=== PATIENT | female | born 1965 | race Caucasian/White ===

== ENCOUNTER → 2024-02-01 | Outpatient (CLI) | payer OTHER ==
--- NOTE | 2024-02-19 09:06 | MR ---
Patient: Gus Figueroa Ordering Physician: Unknown, Unknown ID: [id number] Phone, Pager: Phone : N/A Pager: N/A : 1965 Age/Gender: 58Y, F Primary Location: N/A Procedure: MR lumbar wo con Study Date: 02/01/2024 7:17:02 AM EXAMINATION TYPE: MR lumbar spine wo con DATE OF EXAM: 02/02/2024 8:21 AM CLINICAL INDICATION: Low back pain that radiates to both legs COMPARISON: None TECHNIQUE: Multi planar, multi sequence imaging was performed utilizing: T1-weighted, T2-weighted, a nd turbo inversion recovery imaging of the lumbar spine. IV Contrast: (None if empty) FINDINGS: Alignment: The lumbar vertebral bodies have preserved heights with grade 1 anterolisthesis of L4 on L 5. Cord: The conus medullaris and the distal spinal cord appear unremarkable with regards to their signa l intensity and morphology. Bones/Discs: Mild degeneration changes throughout the spine with osteophyte formation and facet joint arthropathy. Multilevel disc desiccation is present. Reactive adjoining endplate edema at L4-L5 on t he right. T12-L1: No evidence of significant spinal canal stenosis or neural foraminal stenosis. L1-L2: No evidence of significant spinal canal stenosis or neural foraminal stenosis. L2-L3: Disc bulge and facet joint arthropathy without significant spinal canal stenosis and moderate to severe left and moderate neural foraminal stenosis. L3-L4: Disc bulge and facet joint arthropathy result in mild spinal canal and severe bilateral neural foraminal stenosis. L4-L5: Disc uncovering from grade 1 anterolisthesis and facet joint arthropathy with mild spinal tana l stenosis and severe bilateral neural foraminal stenosis. L5-S1: The disc has a rounded posterior morphology without significant spinal canal stenosis. Facet j oint arthropathy with severe bilateral neural foraminal stenosis. No significant spinal canal or neural foraminal stenosis in the remainder of the visualized levels. Other findings: None. IMPRESSION: 1. No definitive evidence of disc herniation or significant spinal canal stenosis. 2. Grade 1 anterolisthesis of L4 on L5 resulting in severe bilateral neural foraminal stenosis. 3. Multilevel disc degeneration with associated osteoarthritic changes with severe bilateral L5-S1 a nd L3-L4 neural foraminal stenosis.
== END | disposition home or self-care (01) ==
LOC: RADMRIMAIN 08:00
PROVIDERS: ATTEND Student in an Organized Health Care Education/Training Program
DX: M54.51 Vertebrogenic low back pain (principal); M48.061 Spinal stenosis, lumbar region without neurogenic claudication; M51.37 Other intervertebral disc degeneration, lumbosacral region; M19.90 Unspecified osteoarthritis, unspecified site; M51.17 Intervertebral disc disorders with radiculopathy, lumbosacral region
CPT/HCPCS: 72148

== ENCOUNTER → 2024-02-18 | Outpatient (CLI) | payer OTHER ==
--- NOTE | 2024-02-18 11:57 | CT ---
EXAMINATION TYPE: CT lumbar spine wo con CT DLP: 906 mGycm, Automated exposure control for dose reduction was used. DATE OF EXAM: 02/18/2024 11:29 AM COMPARISON: MR lumbar spine 02/01/2024, lumbar spine radiograph 01/29/2024. CLINICAL INDICATION:Female, 58 years old with history of M54.5 lumbar pain; PHH, LOW BACK PAIN. HX OF LAMINECTOMY. POSSIBLE FX TECHNIQUE: Multiple axial images were obtained from the midportion of T11 through the sacroiliac maritza nts. Soft tissue and bone windows in coronal and sagittal planes were obtained and reviewed. Contrast used: none. Oral contrast used: none. FINDINGS: Alignment: There are 5 lumbar type vertebral bodies. Grade 1 anterolisthesis of L4 on L5 with right p ars defect. Bone: No evidence of fracture is identified. Postsurgical changes with laminectomy at L4 and L5. Mul tilevel anterior osteophytosis. Bilateral SI joint degenerative changes with sclerosis and vacuum dis c disease. Discs: Multilevel degenerative disc disease with endplate sclerosis, disc space narrowing, and vacuum disc disease. T12-L1: Left paracentral disc protrusion with mild effacement of the anterior thecal sac. Mild bilate ral neural foraminal stenosis. L1-L2: Broad-based disc bulge with mild effacement of the anterior thecal sac. Mild bilateral neurofo raminal stenosis. L2-L3: Broad-based disc bulge without significant central canal stenosis. Right neural foramen is pat ent. Mild left neural foraminal stenosis. L3-L4: Postlaminectomy changes. Broad-based disc bulge with mild effacement of anterior thecal sac. N o significant central canal stenosis. Bilateral facet arthropathy. Moderate to severe left and modera te right neural foraminal stenosis. L4-L5: Grade 1 anterolisthesis with uncovering the disc. Postlaminectomy changes with broad-based dis c bulge. No significant central canal stenosis. Bilateral facet arthropathy. Mild to moderate bilater al neural foraminal stenosis secondary to facet arthropathy and disc bulge. L5-S1: Broad-based disc bulge with mild effacement of the anterior thecal sac. Bilateral facet arthro david and disc bulge contribute to moderate bilateral neural foraminal stenosis. Other: Moderate atherosclerotic calcification of the aorta and its branches. Postcholecystectomy burns ges. IMPRESSION: 1. No evidence for spinal fracture. 2. Moderate multilevel degenerative disc disease and facet arthropathy as described above. 3. Postsurgical changes from laminectomy L4-L5 with grade 1 anterolisthesis L4 on L5.
== END | disposition home or self-care (01) ==
LOC: RADCTMAIN 11:07
PROVIDERS: ATTEND Orthopaedic Surgery
DX: M47.26 Other spondylosis with radiculopathy, lumbar region (principal); M51.36 Other intervertebral disc degeneration, lumbar region; M43.16 Spondylolisthesis, lumbar region
CPT/HCPCS: 72131

== ENCOUNTER → 2024-05-27 | Outpatient (CLI) | payer OTHER | END | disposition home or self-care (01) | LOC: LABPAT 11:57 | PROVIDERS: ATTEND Orthopaedic Surgery | DX: Z01.818 Encounter for other preprocedural examination (principal); Z22.322 Carrier or suspected carrier of Methicillin resistant Staphylococcus aureus; M48.061 Spinal stenosis, lumbar region without neurogenic claudication; M99.43 Connective tissue stenosis of neural canal of lumbar region | CPT/HCPCS: 86850; 86900; 86901; 87070 ==

== ENCOUNTER 2024-06-04 09:58 | Inpatient (IN) | payer OTHER ==
[2024-05-28 15:10] VITALS: BMI 31.1
--- NOTE | 2024-06-04 06:40 | P.HPOR ---
History of Present Illness H&P Date: 05/27/24 .D:Date: 05/27/24 : 04:15pm .T:Title: *[facility] [address] [place], [place] [address], [place] [address]| PROVIDER: DEANNA NEIL DO CLINICAL SUMMARY: *Ms. Figueroa is a 59-year-old female presenting with severe lumbar pain (VAS 6/10) and bilateral lower extremity radiculopathy. She has a history of L2- S1 laminectomy in 2019 and presents for pre-operative evaluation for revision L3 to pelvis fusion surgery. Imaging reveals Grade I unstable spondylolisthesis at L3-4 and L4-5 with severe L3-S1 spondylosis and foraminal stenosis. Physical exam demonstrates bilateral lower extremity weakness (4/5), positive straight leg raise, and dermatomal deficits L3-S1. Conservative treatments including physical therapy, medications, and injections have failed to provide lasting relief. Surgical Plan and Rationale: The recommended procedure is a revision L3 to pelvis posterior lateral and interbody fusion with revision decompression and stabilization. This extensive procedure is warranted due to multiple factors: failed conservative management, progressive neurological deficits including motor weakness and radiculopathy, and significant imaging findings showing multi-level instability. The surgery aims to address both the mechanical instability and neural compression to prevent further neurological deterioration and provide pain relief. DEMOGRAPHICS: Age: 59 year Height: 5'3" Weight: 164 lbs BP:/ BMI: 29.05 kg/m2 Occupation: *Office CC: *lumbar pain VAS: * 6 HISTORY: Ms. Figueroa presents to the office today, 05/27/24, for a pre-operative appointment preceding her Revision L3 to pelvis posterior lateral and interbody fusion with decompression and stabilization. She has a history of L2-S1 laminectomy with Dr. Mendieta in 2019. She notes constant, achy, posterior low back pain that radiates bilateral lower extremities. She notes increased pain with bending and twisting. She notes that heat helps alleviate some of her pain. She is experiencing sleep disturbances from her ongoing pain and symptoms. She is currently taking tramadol and motrin for relief of her symptoms. H8 Patient denies any f/c/sob/cp, perineal numbness or tingling, bowel, or bladder incontinence/retention. Patient is ambulatory independently. P1 The patients past social, medical, family, surgical history, as well as review of systems, have been reviewed. Please refer to the History and Physical form that has been scanned into our electronic medical record system. R0 16 points review of systems completed and as stated in HPI, all other systems reviewed are negative. PAST TREATMENTS: PAST IMAGING: YES -MRI, XRAY, CT SANS TRAUMA RELATED: NO - WORK RELATED: NO - PT IN LAST 6 MONTHS: YES - PHYSICIAN DIRECTED HOME EXERCISE PROGRAM: YES -SEVERAL ROUNDS, NO SUCCESS ACTIVITY MODIFICAITON: YES -LIMITED BLTPP <15 LBS MEDICATIONS: YES -MOTRIN, TYLENOL, ALEVE, ROBAXIN, MEDROL ALTERNATIVE INTERVENTIONS (CHIROPRACTIC, ACCUPUNCTURE, MASSAGE, RICE): YES -CHIROPRACTICS, WILL NOT GO BACK BRACING: NO - INJECTIONS (MK, TF, RFA): YES -NO SIGNIFICANT LASTING RELIEF MEDICAL HISTORY: Past Medical History: REVIEWED STATED IN CHART Past Surgical History: REVIEWED STATED IN CHART Social History: REVIEWED STATED IN CHART SMOKING: Never smoker ETOH: None SUBSTANCES: None Family History: REVIEWED STATED IN CHART P1 Current Medications: Rx: Janumet Ref: 0 Rx: ibuprofen 200 mg tablet Ref: 0 Instructions: take 1 tablet (200 mg) by oral route every 6 hours as needed with food Rx: traMADol 50 mg tablet Ref: 0 Instructions: Twice daily as needed for pain P1 PHYSICAL EXAM: PC2 PC1 General: AOX3, NAD, Well hydrate, well nourished PN1 HEENT: No lumps or masses Extremities: No color changes, no pooling INTEGUMENT: Appearance: Normal color and turgor Surgical Incisions: Well healed Hairy Patches: ABSENT Dorsal Skin Dimples: Normal [employer] spots: ABSENT PALPATION: TTP Midline: YES Paracervical: NO Parathoracic: NO Paralumbar: YES SIJ TESTING: NT POSTURAL BALANCE: Coronal: BALANCED Sagittal: BALANCED Shoulder height: LEVEL Pelvic Girdle: LEVEL ROM AND APPEARANCE: Neck: UNRESTRICTED Lumbar: RESTRICTED Shoulders: Symmetrical Hips: Symmetrical Knees: Symmetrical Hands: Symmetrical Feet: Symmetrical VASCULAR STATUS: PALPABLE PULSES B/L UE AND LE 2/4 RAD/ULNAR/DP/PT Edema: NONE NEUROLOGICAL EXAMINATION: Mental Status: Awake, alert, fully oriented with normal attention, concentration, and memory. Fluent appropriate speech. CRANIAL NERVES: I: Olfactory not assessed. II: Visual acuity normal, no visual field deficit noted with confrontation. III, IV: Normal pupillary reflexes & intact extraocular movements without nystagmus. V, : Intact symmetrical facial sensation. VII: Intact symmetrical facial motor movement: Hearing intact. IX, X: Intact gag, swallow, & normal voice. XI: Sternocleidomastoid, trapezius function intact. XII: Tongue midline with normal movements. TENSIONING: * L'HERMITTE'S SIG:NEG SPURLUNG'S SIGN:NEG CUBITAL TUNNEL COMPRESSION:NEG TINELS AT WRIST:NEG STRAIGH LEG RAISE:POS CONTRALATERAL STRAIGHT LEG RAISE: NEG MOTOR EXAM (0-5/5, NT) Muscle appearance: Symmetrical, without signs of atrophy or dystrophy UPPER EXTREMITY RIGHT LEFT Shoulder Abduction 5 5 Biceps 5 5 Triceps 5 5 Wrist Extension 5 5 Hand Intrinsics 5 5 Product Development Manager 5 5 LOWER EXTREMITY RIGHT LEFT Hip Flexion 4 4 Knee Extension 4 4 Knee Flexion 4 4 Dorsiflexion 4 4 Plantarflexion 4 4 EHL 4 4 FHL 4 4 REFLEXES (0-4/2, NT): RIGHT LEFT Bicep 2 2 Brachioradialis 2 2 Triceps 2 2 Patellar 1 2 Achilles 1 2 PATHOLOGICAL REFLEXES: RIGHT LEFT DOWLING'S ABSENT ABSENT CLONUS ABSENT ABSENT BABINSKI ABSENT ABSENT RECTAL TONE: INTACT/NT SENSATION (0-4, NT): Sensation intact to LT and Pain * C5-T1 distribution BUE * L2-S2 distribution BLE *Exceptions below* DERMATOMAL DEFICIT/RADICULAR PATTERN: L3-S1 GAIT AND FUNCTIONAL EVALUATION: AMBULATORY AID Walker ROMBERG'S TEST INTACT HAND AND FINGER DEXTERITY INTACT YES DYSDIADOCHOKINESIA EXAM NEG B/L YES TOE/HEEL WALK INTACT WITH GOOD BALANCE NO SQUAT AND RISE W/O ASSISTANCE TO 60 DEG KNEE FLEXION NO SINGLE LEG STANCE NOT INTACT [place] NEG IMAGING: XRAY Date: 01/29/24 Location: [facility] Region: LUMBAR Views: AP/LAT/FLEX/EXT/OB/PELVIS IMAGES ARE REVIEWED WITH THE PATIENT IN OFFICE AND DEMONSTRATE THE FOLLOWING: FINDINGS: * Grade I spondylolisthesis L3-4, unstable Grade I spondylolisthesis L4-5, unstable L5-S1 spondylosis severe with severe disc collapse and degenerative changes, facet hypertrophy and arthropathy. Vacuum disc phenomena. L3-S1 spondylosis severe with foraminal stenosis L4-5 spondylolysis b/l pars defects. CT Date: 02/18/24 Location: [facility] Region: Lumbar Contrast: N IMAGES ARE REVIEWED WITH THE PATIENT IN OFFICE AND DEMONSTRATE THE FOLLOWING: FINDINGS: Similar findings to XR with b/l spondylolysis L4-5 with Grade I unstable spondylolisthesis at L3-4 and L4-5. Severe spondylosis with vacuum disc L3-S1. Severe facet arthrosis with foraminal stenosis b/l L3-S1. NO fracturesnoted. NO lesions. MRI Date: 02/01/24 Location: [facility] Region: Lumbar Contrast: N IMAGES ARE REVIEWED WITH THE PATIENT IN OFFICE AND DEMONSTRATE THE FOLLOWING: FINDINGS: Similar findings with L3-S1 severe spondylosis with Grade I spondylolisthesis as described above. L4-5 severe foraminal stenosis due to slip, listhesis and HNP. There is facet and ligamental hypertrophy also contributing to the stenosis and lateral recess stenosis. No fracturesnoted. IMPRESSION: It was my pleasure to have seen and examined Gus. I reviewed the patient's clinical syndrome, physical findings, and imaging studies during the appointment today. It is my impression that the patient has a diagnosis of. 1.L3-4 spondylolisthesis grade I, unstable 2.L4-5 spondylolysis with spondylolisthesis, grade I unstable 3.L3-S1 spondylosis, severe with severe degenerative chagnes 4. Lower extremity radiculopathy 5. LE weakness PLAN: DISCUSSION: -I discussed with the patient her clinical signs and symptoms as well as treatment options. We discussed conservative treatment as well as surgical options. At this point the patient has tried conservative measures and would like to pursue surgical treatment. We discussed this at length including risks benefits of the procedure including but not limited to risk of bleeding infection damage to surrounding tissue and risk of reoperation risk of anesthesia up to and including she was willing to assume these risks and proceed with scheduling surgery as outlined below. -preoperative labs EKG and chest x-ray ordered -Preoperative clearances from primary care doctor requested SURGICAL RECOMMENDATION -L3 to pelvis revision posterior lateral and interbody fusion with revision decompression and stabilization THERAPIES -may continue is able -Cont. with home exercises and home PT exercises as able -Cont. with Heat/Ice as warranted -Cont. with supplementation Vit D, Vit C, Ca2+, High protein diet -OK for massage or other alternative treatment modalities as able. If it exacerbates your sx do not continue ACTIVITY -limit activity at this time for pain control -NO LIFTING BENDING TWISTING PUSHING PULLING GREATER THAN -20 pounds -Recommend walking up to 30 min 2x daily on a flat easy surface with good support. MEDICATIONS -no new prescriptions continue current regiment -Take as directed -Cont. home medications as directed by your PCP. Check with your PCP for any medication interactions or issues if needed. IMAGING -no new imaging needed INJECTIONS -NA Surgical Procedure Risk Review Gus Figueroa is a 58 year old female presenting for evaluation of sudden onset of m a weakness paresthesias low back pain severe with instability feelings. It was my pleasure to have seen and examined Ms. Figueroa. In our visit today we have had a chance to go over subjective complaints, physical examination findings and treatments, including the natural course history without intervention and various interventional options. The imaging demonstrates L3 through S1 spondylosis with L3 4 L4 5 grade 1 spondylolisthesis which is unstable L4 5 spondylolysis facet arthropathy and hypertrophy with stenosis foraminally bilateral. . On physical exam, Ms. Figueroa demonstrates Severe lower extremity paresthesias with low back pain that is severe. Lower extremity weakness secondary to stenosis. Neurogenic claudication symptoms. . I explained to the patient that as her condition progresses it could cause Progressive symptoms continued issues as well as potential neurologic deficit . At this time, based on the patients imaging and physical exam, I recommend surgery in the form or a: revision L3 to pelvis decompression and posterior lateral and interbody fusion with instrumentation and stabilization . I discussed the risk and benefits of this procedure at length with Ms. Figueroa. The patient agreed to consider pursuing the procedure mentioned above. Plan: 1. Revision L3 to pelvis posterior lateral and interbody fusion with decompression and stabilization 2. Follow up with PCP for surgical clearance 3. Review of surgical risks and benefits as well as an educational packet on the proposed surgical procedure. Risks: All surgical procedures come with inherent risks, including those related to positioning, anesthesia, intraoperative findings, and postoperative complications. It is important to understand that surgery does not come with any guarantee of a successful outcome as complications and adverse events are always possible. The patient was given a handout in office today discussing the surgical procedure and risks associated with the intervention, both of which were discussed with the patient. These risks include but are not limited to the following: ? Experiencing same, different or even worse symptoms in back, neck, arms, or legs compared to before surgery. ? Requiring further surgery or other forms of treatment presently or at some time in the future at same or other levels of the intended spine surgery. ? On an extreme but fortunately relatively rare basis severe complication such as blindness, stroke, heart attack, temporary and/or permanent nerve injury, paralysis, coma, or may occur, sometimes without known explanation. ? Surgical complications may include but are not limited to risk of infection, fluid accumulation in the surgical dissection site, including a seroma or hematoma, that requires additional surgery, wound drainage, bleeding, new numbness or weakness, vision changes/loss, spinal fluid leakage, non-healing and/or infected incision, headaches, difficulty or inability to swallow, hoarseness, hemopneumothorax, pneumothorax, impotence, retrograde ejaculation, vaginal dryness; injury to nerves, spinal cord, blood vessels, lymphatics or other vital organs (i.e., bowel injury, injury to the great vessels); heterotopic bone formation; complications related to the hardware such as screws, rods, cages including misplaced hardware, device failure, instrumentation at the wrong spine level, hardware fracture/breakage, or hardware loosening; vertebral failure of the spinal column above or below the newly placed hardware; retained surgical instrumentations or devices and the need for further surgery. ? Medical risks of the planned spine surgery include but are not limited to generalized Infections to the whole body or local areas outside of the surgical site (sepsis), heart attack, bleeding, anaphylaxis, meningitis, seizure, epilepsy, hearing loss, burn capps, laceration of the head or other areas of the body, bruising, hypersensitivity of the skin, bladder over distension; allergic reaction; shoulder injury related to positioning; fat, blood and air clots to other areas of the body like heart, lungs, brain; failure of internal organs such as lungs, kidneys, liver and excessive bleeding. If blood transfusions are necessary, note that transfusions may cause intolerance reactions such as anaphylaxis or other complex reactions. Despite best efforts, the results of spine surgery might not heal in terms of bone, soft tissues such as skin, fascia, ligaments, and joints. Additionally, in order to achieve best possible results, spine surgery may be carried out beyond the initially planned levels and involve decompression, fusion including insertion of hardware at levels other than the original intended area of surgical interest change some portions of the procedure in order to ensure the best possible outcomes. With spine surgery and spinal fusion, there are different off label uses of instrumentation (devices, implants and hardware) as well as biological substances (bone morphogenic proteins, demineralized bone matrix) as well as using extra bone from allograft sources (i.e. cadaver bone) or autograft (iliac crest bone, ribs, or the spine itself). The patient has been given information about these practices and their inherent risks and benefits. [facility] Physician Assistants are medically trained surgical providers who function in the outpatient, inpatient, and operating room setting under the direct supervision of the attending surgeon.They assist in the operating room with direct supervision of the attending surgeons. The patient has had a chance to review all the listed information, has been given print outs detailing this information, and has had all his/her questions answered to their satisfaction. It was my pleasure to have seen and examined Ms. Figueroa. In our visit today we have had a chance to go over my understanding of our patient's current condition, the natural course history without intervention and various interventional options. Questions were invited and answered, and the patient wishes to proceed as outlined above. I have seen and examined the patient for 25 minutes and we have spent more than 50% of the time in repeat and detailed counseling about the patient's condition, its natural course history with out and as much as can be predicted with surgery and re-review of various surgical treatment options. In conclusion,Ms. Figueroa and her spouse/partner requested we proceed with the above suggested surgery and are willing to accept risks and limitations of the suggested surgery as nature of the disease process and our best attempts at treatment for the condition. AUTHORIZATION REQUEST Patient: Gus Figueroa Age: 58 Diagnosis: Multi-level lumbar spondylolisthesis with stenosis and post-laminectomy syndrome PROCEDURE REQUESTED: L3 to pelvis revision posterior lateral and interbody fusion with revision decompression and stabilization PRIMARY ICD-10 CODES: * M43.16 - Spondylolisthesis, lumbar region M43.06 - Spondylolysis, lumbar region M48.06 - Spinal stenosis, lumbar region M96.1 - Post-laminectomy syndrome M54.16 - Radiculopathy, lumbar region CPT CODES REQUESTED: * 05505 - Combined posterior interbody fusion, lumbar, single level 72331 - Each additional interbody level (x2) 17784 - Posterior segmental instrumentation (3-6 segments) 20893 - Revision decompression, single level 46892 - Each additional decompression level 09066 - Attachment to the bony pelvis for long construct stability 66917 - Autograft for spine surgery 92386 - Insertion of interbody biomechanical device 27559 - Computer assisted navigation for accurate screw placement MEDICAL NECESSITY: * Failed Conservative Treatment (documented 6+ months): * Multiple rounds of physical therapy Medication management (NSAIDs, muscle relaxants, Tramadol) Activity modification Failed epidural injections Home exercise program * Progressive Neurological Deficits: * Motor weakness in bilateral lower extremities (4/5) Positive straight leg raise Dermatomal deficits L3-S1 Requires walker for ambulation Decreased reflexes * Imaging Evidence of Instability: MRI/CT/X-rays (January-February 2024) demonstrate: * Grade I spondylolisthesis L3-4, unstable Grade I spondylolisthesis L4-5, unstable Bilateral L4-5 spondylolysis Severe L3-S1 spondylosis with foraminal stenosis Failed previous L2-S1 laminectomy * Functional Decline: * Unable to perform basic activities without assistance Sleep disturbance due to pain Requires assistive device for ambulation Unable to perform toe/heel walk Failed previous decompressive surgery RATIONALE FOR SURGICAL APPROACH: Multi-level fusion and revision decompression is required due to: * Multiple level mechanical instability Failed previous surgery Progressive neurological compromise Documented pathology on multiple imaging modalities Failed adequate conservative management The proposed surgical intervention represents the most appropriate treatment to prevent further neurological deterioration and address the documented mechanical instability. Without surgical intervention, patient is at risk for continued functional decline and progressive neurological deficits. REQUESTED AUTHORIZATION: * Pre-operative clearance Hospital admission Post-operative rehabilitation DME as needed for post-operative care Post-operative medication management Surgeon: Deanna Neil DO Facility: [facility] Anticipated Length of Stay: 3-4 days FOLLOW UP: *POST-OP PLAN AT NEXT VISIT: * RECHECK PATIENT EDUCATION: Medications Reviewed: YES In our visit today Ms. Figueroa and I have had a chance to go over my understanding of the patient's current condition, the natural course history without intervention and various interventional options. Questions were invited and answered, and the patient wishes to proceed as outlined above. I will be sure to keep you updated after Ms. Figueroa returns here for further follow-up. Thank you again for your referral. Please do not hesitate to contact me if you have any further questions. Signed and authenticated by: Deanna Avila [facility] [address] [place] [address] . This message is confidential, intended only for the named recipient(s) and may contain information that is privileged or exempt from disclosure under applicable law. If you are not the intended recipient(s), you are notified that the dissemination, distribution or copying of this information is prohibited. If you received this message in error, please notify the sender then delete this message. Past Medical History Past Medical History: Cancer, Diabetes Mellitus, Hyperlipidemia, Hypertension Additional Past Medical History / Comment(s): Hx left breast cancer in 2010 with mastectomy and chemo, recurrance of left breast cancer in 2018, had lumpectomy and radiation. Hx infection X2 due to breast implants. History of Any Multi-Drug Resistant Organisms: None Reported Past Surgical History: Breast Surgery, Section, Cholecystectomy, Hysterectomy Additional Past Surgical History / Comment(s): left breast mastectomy then right breast mastectomy, multiple reconstructive breast surgeries, bilateral breast implants which were later removed.breast reconstrcution, procedure to right carotid artery, foot surgery, laminectomy in 2019, section X2, right catarcat surgery with lens implant. Past Anesthesia/Blood Transfusion Reactions: No Reported Reaction Smoking Status: Former smoker - Past Family History Mother Family Medical History: Cancer Additional Family Medical History / Comment(s): Uterine cancer. Medications and Allergies Home Medications Medication Instructions Recorded Confirmed Type Acetaminophen [Tylenol Extra 1,500 mg PO BID 05/28/24 05/28/24 History Strength] Co Q-10 (Unknown Dose) 1 tab PO DAILY 05/28/24 05/28/24 History Fexofenadine/Pseudoephedrine 1 tab PO QAM 05/28/24 05/28/24 History [Mari-D 24 Hour Tablet] Furosemide [Lasix] 20 mg PO QAM 05/28/24 05/28/24 History Ibuprofen 800 mg PO Q8H PRN 05/28/24 05/28/24 History Losartan Potassium [Cozaar] 100 mg PO QAM 05/28/24 05/28/24 History Metoprolol Tartrate 25 mg PO BID 05/28/24 05/28/24 History Multivitamins, Thera [Multivitamin 1 tab PO DAILY 05/28/24 05/28/24 History (formulary)] Pioglitazone [Actos] 30 mg PO QAM 05/28/24 05/28/24 History Potassium Chloride ER [K-Dur 10] 10 meq PO QAM 05/28/24 05/28/24 History Ranolazine [Ranexa] 1,000 mg PO BID 05/28/24 05/28/24 History Rosuvastatin (Unknown Dose) 1 tab PO QAM 05/28/24 05/28/24 History sitaGLIPtin [Januvia] 100 mg PO QAM 05/28/24 05/28/24 History Allergies Allergy/AdvReac Type Severity Reaction Status Date / Time codeine Allergy Rash/Hives Verified 05/28/24 14:45 morphine Allergy "Bugs Verified 05/28/24 14:45 crawling under my skin." vancomycin Allergy Fever Verified 05/28/24 14:45 glue on tape Allergy Rash/Hives Uncoded 05/28/24 14:45 Physical Examination Osteopathic Statement: *. No significant issues noted on an osteopathic structural exam other than those noted in the History and Physical/Consult.
[~2024-06-04 09:58] MED LIST: LIDOCAINE 1% (10MG/ML) FOR IV START INTRADERMA PRN; ONDANSETRON 4 MG/2 ML VIAL IVP PRN; TRANEXAMIC 1,000 MG/100ML-NACL 1,000 MG in SALINE 1 100ML.BAG IVPB PRN; droPERidol 5 MG/2 ML VIAL IVP PRN
[2024-06-04] MEDS: GABAPENTIN 300 MG CAP PO PRN (10:35)
[2024-06-04] MEDS: ACETAMINOPHEN TAB 500 MG TAB PO PRN (10:35)
[2024-06-04] MEDS: ONDANSETRON 4 MG/2 ML VIAL IVP ONE (10:54)
[2024-06-04 10:55] LABS: Glucose,Whole Blood 144 mg/dL (70-110)
[2024-06-04] MEDS: LACTATED RINGERS 1,000 ML IV SCH (10:55)
[2024-06-04] MEDS: IV FLUID CONTINUATION 1,000 ML IV ONE ×3 (10:56→17:53)
[2024-06-04] MEDS ORDERED: NEOSTIGMINE 1 MG/ML 10 ML VIAL ONE (12:01)
[2024-06-04] MEDS ORDERED: ALBUMIN HUMAN 5% (25gm) 500 ML VIAL IVPB ONE (12:01)
[2024-06-04] MEDS: THROMBIN (BOVINE) 5,000 UNIT VIAL TOPICAL ONE (12:01)
[2024-06-04] MEDS ORDERED: PHENYLEPHRINE-0.9% NACL SYG 1,000 MCG/10 ML SYRINGE ONE (12:01)
[2024-06-04] MEDS ORDERED: LIDOCAINE 1% INJ 10MG/ML (20 ML MDV) ONE (12:01)
[2024-06-04] MEDS ORDERED: PROPOFOL 10 MG/ML 20 ML VIAL IV ONE (12:01)
[2024-06-04] MEDS ORDERED: MIDAZOLAM 2 MG/2 ML VIAL ONE (12:01)
[2024-06-04] MEDS ORDERED: SUCCINYLCHOLINE CHLORIDE 200 MG/10 ML VIAL IV ONE (12:01)
[2024-06-04] MEDS ORDERED: PHENYLEPHRINE 10 MG/ML VIAL ONE (12:01)
[2024-06-04] MEDS ORDERED: TRANEXAMIC 1,000 MG/100ML-NACL PREMIX BAG ONE (12:01)
[2024-06-04] MEDS ORDERED: ROCURONIUM 10 MG/ML (5 ML VIAL) IV ONE (12:01)
[2024-06-04] MEDS ORDERED: fentaNYL (PF) 50 MCG/ML 2 ML AMP ONE (12:01)
[2024-06-04] MEDS ORDERED: GLYCOPYRROLATE 0.2 MG/ML 2 ML VIAL ONE (12:01)
[2024-06-04] MEDS ORDERED: KETAMINE HCL IN 0.9 % NACL 50 MG/5 ML SYRINGE ONE (12:01)
[2024-06-04] MEDS: GENTAMICIN 80 MG in SODIUM CHLORIDE 0.9% IRRIGATIO 3,000 ML IRRIGATION ONE (12:49)
[2024-06-04] MEDS: ceFAZolin 3,000 MG in SODIUM CHLORIDE 0.9% IRRIGATIO 3,000 ML IRRIGATION ONE (12:49)
[2024-06-04] MEDS: LACTATED RINGERS 1,000 ML IV ONE (14:02)
[2024-06-04] MEDS: VANCOMYCIN 1,000 MG VIAL MISCELLANE ONE (16:13)
--- NOTE | 2024-06-04 16:23 | FL ---
EXAMINATION TYPE: FL guidance operating room, XR lumbar spine 2 or 3V DATE OF EXAM: 06/04/2024 4:18 PM COMPARISON: Pre Operative Images if available both CT/MRI or plain film CLINICAL INDICATION: Female, 59 years old with history of PLDF; TECHNIQUE: FL guidance operating room, XR lumbar spine 2 or 3V, multiple fluoroscopic images provided for procedure. Total fluoroscopy time: 3 min 25 seconds Total submitted images to PACS: 22 DAP: 77.896 mGym2 Gycm2 uGym2 cGycm2 or equivalent. FINDINGS: Fluoroscopic images during internal fixation/arthroplasty demonstrate hardware in appropriate positio n. Hardware appears intact. No immediate complication identified. IMPRESSION: 1. No evidence for intraoperative complication. 2. Please see the operative/procedural note for further details. min min [facility], , 06/04/2024 4:21 PM
[2024-06-04] MEDS ORDERED: HYDROcodone/APAP 5-325MG 1 EACH TAB PO PRN (16:59)
[2024-06-04] MEDS ORDERED: ONDANSETRON 4 MG/2 ML VIAL IVP PRN (16:59)
[2024-06-04] MEDS ORDERED: MAGNESIUM HYDROXIDE 2,400 MG/30 ML CUP PO PRN (16:59)
[2024-06-04] MEDS: HYDROmorphone 0.5 MG/0.5 ML SYRINGE IVP PRN (17:17)
[2024-06-04 17:49] LABS: Glucose,Whole Blood 159 mg/dL (70-110)
[2024-06-04] MEDS: DEXAMETHASONE SOD PHOSPHATE 4 MG/ML 1 ML VIAL IV ONE (18:05)
[2024-06-04] MEDS: ACETAMINOPHEN TAB 325 MG TAB PO SCH (18:22)
[2024-06-04] MEDS: HYDROmorphone 1 MG/ML 1 ML SYRINGE IVP PRN (18:23)
[2024-06-04] MEDS: GABAPENTIN 300 MG CAP PO SCH (21:17)
[2024-06-04] MEDS: HYDROcodone/APAP 10-325MG 1 EACH TAB PO PRN (23:40)
[2024-06-05] MEDS: CYCLOBENZAPRINE 5 MG TAB PO PRN (01:11)
[2024-06-05 04:58] LABS: African American GFR (CKD) >90 (>60 ml/min/1.73 sqM); Anion Gap 7 mmol/L; Blood Urea Nitrogen 15 mg/dL (7-17); Calcium 8.7 mg/dL (8.4-10.2); Carbon Dioxide 25 mmol/L (22-30); Chloride 111 mmol/L (98-107); Glucose 136 mg/dL (74-99); Non-African American GFR(CKD) >90 (>60 ml/min/1.73 sqM); Sodium 143 mmol/L (137-145)
[2024-06-05 05:00] LABS: Potassium 5.5 mmol/L (3.5-5.1)
[2024-06-05] MEDS: HYDROmorphone 0.5 MG/0.5 ML SYRINGE IVP PRN (06:31)
--- NOTE | 2024-06-05 08:06 | P.OP ---
Date of Procedure: 06/04/24 Preoperative Diagnosis: 1. L3-S1 SPONDYLOSIS, SEVERE WITH STENOSIS 2. 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 L5-S1 GRADE 1 SPONDYLOLISTHESIS, UNSTABLE 4. NEUROGENIC CLAUDICATION 5. LE PARESTHESIAS 6. LE WEAKNESS 7. LOW BACK PAIN Postoperative Diagnosis: 1. L3-S1 SPONDYLOSIS, SEVERE WITH STENOSIS 2. 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 L5-S1 GRADE 1 SPONDYLOLISTHESIS, UNSTABLE 4. NEUROGENIC CLAUDICATION 5. LE PARESTHESIAS 6. LE WEAKNESS 7. LOW BACK PAIN Procedure(s) Performed: 1. L5-S1 INTRADISCAL OSTEOTOMY, 3 COLUMN FOR DEFORMITY CORRECTION 2. L4-5 INTRADISCAL OSTEOTOMY, 3 COLUMN FOR DEFORMITY CORRECTION 3. L3-4 POSTEROLATERAL AND INTERBODY FUSION 4. L4-5 POSTEROLATERAL AND INTERBODY FUSION 5. L5-S1 POSTEROLATERAL AND INTERBODY FUSION 6. L3-PELVIS SEGMENTAL INSTRUMENTATION 7. ATTACHMENT OF THE CAUDAL END OF CONSTRUCT TO BONY PELVIS NOT SACRUM 8. OPEN BILATERAL SACROILIAC JOINT FUSION FOR LONG CONSTRUCT STABILITY AND SACROILITIS 9. L3-4, L4-5, L5-S1 BILATERAL REVISION LAMINECTOMY, COMPLETE FACETECTOMY AND FO RAMINOTOMY FOR NEURAL DECOMPRESSION, DEFORMITY CORRECTION AND CAGE PLACEMENT 10. INSERTION OF BIOMECHANICAL DEVICES AT L3-4, L4-5 AND L5-S1, CAGES x3 USE OF IONM ALL SCREWS TESTING > 20 mA MOD22: THIS CASE TOOK 75% LONGER THAN EXPECTED DUE TO THE SEVERITY OF HER DISEASE, DEFORMITY, TECHNICALITY OF THE CASE, COMORBID CONDITIONS AND BMI >30. Implants: -AMBER EVEREST RODS AND SCREWS -SI BONE GRANIT PELVIC SCREWS x2 70X10.5 -SI BONE TORQUE SCREWS x2 50X10.5 -GLOBUS INTRALIFT CAGES X3 LONG AND XL -AUTOGRAFT, ALLOGRTAFT, DBM, CONTOUR, ARTHROCELL, ALLOCELL, MAGNATOS Anesthesia: GETA Surgeon: Naldo [facility] [employer] Director #1: Lorenzo Medina (THAIS Lyn Was present and assisted with all as pects of the case from positioning to dressing placement) Estimated Blood Loss (ml): 500 IV fluids (ml): 2,000 Urine output (ml): 450 Pathology: none sent Condition: stable Disposition: PACU Indications for Procedure: Gus Figueroa is a 58 year old female presenting for evaluation of sudden onset of m a weakness paresthesias low back pain severe with instability feelings. It was my pleasure to have seen and examined Ms. Figueroa. In our visit today we have had a chance to go over subjective complaints, physical examination findings and treatments, including the natural course history without intervention and various interventional options. The imaging demonstrates L3 through S1 spondylosis with L3 4 L4 5 grade 1 spondylolisthesis which is unstable L4 5 spondylolysis facet arthropathy and hypertrophy with stenosis foraminally bilateral. . On physical exam, Ms. Figueroa demonstrates Severe lower extremity paresthesias with low back pain that is severe. Lower extremity weakness secondary to stenosis. Neurogenic claudication symptoms. . I explained to the patient that as her condition progresses it could cause Progressive symptoms continued issues as well as potential neurologic deficit . At this time, based on the patients imaging and physical exam, I recommend surgery in the form or a: revision L3 to pelvis decompression and posterior lateral and interbody fusion with instrumentation and stabilization . I discussed the risk and benefits of this procedure at length with Ms. Figueroa. The patient agreed to consider pursuing the procedure mentioned above. Plan: 1. Revision L3 to pelvis posterior lateral and interbody fusion with decompression and stabilization Description of Procedure: L3-PELVIS REVISION DECOMPRESSION AND FUSION, DENNISE (FREE HAND) The patient was seen and examined in the preoperative area. All preoperative protocols were followed. Informed consent was obtained, risks and benefits of the procedure were discussed at length. Risks including bleeding infection damage to the surrounding tissue and risk of reoperation were discussed with the patient. Risk of anesthesia up to and including was discussed with the patient. These are outlined in the risk review. They were willing to accept these risks and all the risks of surgery. The patient was given a weight-based dose of antibiotics in the form of 3 g Ancef. The patient was seen and evaluated by the anesthesia team who deemed them fit for surgery. The site was marked, the patient was willing to proceed with the procedure. The patient was transferred to the operative suite by the Department of anesthesia. They were then drifted off to sleep by the department anesthesia and GETA was performed. The patient tolerated this well. Soni catheter was placed by nursing staff, a-traumatically. Once confirmation of lines and ventilation the patient was transferred to a prone Trios spine table very carefully. The head was secured and stable. X Ray confirmed alignment. All bony prominences including wrists, elbows, axilla, chest, hips, and thighs, and feet were padded very well. Special attention was paid to the genitalia, and these were padded accordingly. SCDs were placed on bilateral lower extremities and were connected. Arms were well padded and placed at 90/90 up and out and well padded. Safety strap and tape placed on the patient. Once in position, again we confirmed good ventilation capabilities and that lines were running appropriately. The patient's lumbosacral pelvic was then exposed. Hair was removed for incision. 1010s were placed outlining the incision site. Standard alcohol was used to clean the incision site and allowed to dry. C-arm was used to bio-mike the patient and confirm level for incision which was marked with a skin marker. Operative briefing was performed with all teams and everyone in agreement to proceed. The patient was then prepped and draped in a normal sterile fashion. Timeout was then performed, and all parties agreed with the procedure to be performed. Midline skin incision was then made over the previously bookmarked area and dissection taken down to the lumbosacral fascia which was identified and cleaned with a barrera. There was excessive sub-q adipose that was obtrusive and needed to be retracted. Once midline was identified, fasciotomy was made over the SP of L2-S1 and pelvis. Subperiosteal dissection was then taken down over the lamina and facet joints and TPs were exposed and trough made posterolateral. TPs were then decorticated with a high speed kandi for lateral fusion. Dissection was taken out over the sacrum to the pelvis. SI joint identified and modified Bruno starting point for pelvic screws identified as well. Retractors placed. Wound was irrigated and lateral image with penfield 4 placed at the pars of L4 confirmed levels for operation. Screws were then placed from L3-Pelvis using a free hand technique with fluoroscopic guidance. Under Lateral guidance, a high speed kandi was used to make a airplane pilot commercial hole followed by a pedicle finder that was passed through the pedicle into the body. A ball tip probe then confirmed within the pedicle. The screw was then measured and placed under lateral fluoroscopic guidance. After screws were placed from L3-S1, AP image confirmed safe placement of screws. Lateral images as well as Judet views were then used to place bilateral SI bone Granit pelvic screws. Starting point selected just lateral to the SI joint and S2 pseudo facet. Lateral image taken and kandi used to make the airplane pilot commercial hole. Gearshift then used to pass into the pelvis under lateral imaging just above the sciatic notch. 30 deg/30deg iliac oblique then taken to confirm within the teardrop and ball tip probe used to probe good bone. The screw was then measured and selected and placed under lateral imaging. This was repeated on the contralateral side. Screws were then visualized and appeared safe. Screws were then tested, and reliably tested screws tested above 20 mA. SI Bone Torque screws were then proceeded to be placed bilaterally for SIJ fusion. This was done in an S2Ai approach with lateral image, high speed kandi and gear shift. Ball tip probe then used to measure screw and palpate and confirm safety. Judet views confirmed trajectory and SIJ stabilization. Screws were then placed after decortication of the SIJ bilaterally in these positions. They were confirmed to be in good position on AP, Inlet and Outlet views. We then proceeded to decompression and interbody placement. Starting at L5-S1, bilateral laminectomy, complete facetectomy and foraminotomies were performed using high speed bur, Kerrison rongeur. There was exuberant bone formation throughout the entire lumbar spine, making the case very meticulous and difficult. Severe stenosis with dural scarring was noted at L3-S1. There was significant scar tissue surrounding these joints as well as the dura. Once exposed the neural elements were protected and an intradiscal osteotomy, 3 column, was performed for deformity correction at L5-S1. Osteotome was used to make osteotomy in L5 and S1 and for complete disc removal. A box osteotome was then used to widen this bilaterally. This was passed into the anterior 1/3 of L5. This allowed for loosening of this level and correction. A cage was then selected based on shaving and trials. Bleeding endplates were encountered and cartilage removed. Autograft, allograft were then placed anterior to the cage. The cage was then impacted into place under lateral imaging while protecting neural elements. The cage was then expanded into position and showed good lift and correction. Holiness of lordosis and height achieved. Meticulous hemostasis then performed. Cage was backfilled with DBM and the area irrigated. At L4-5, bilateral laminectomy, complete facetectomy and foraminotomy were performed as described above. Again, exuberant bone formation was encountered and at this level. There was also a large disc osteophyte complex that was identified once disc space was found. The dura was carefully dissected off this anteriorly and b/l. Once encountered, the disc space was then accessed in a similar fashion and neural elements protected. Intradiscal, 3 column osteotomies, for deformity correction was then performed again at this level as described above. Once completed and complete discectomy performed there was good mobility at this level. Cage was then sized and selected. Autograft and allograft was then placed anterior in the disc space and the cage was then inserted and impacted into place under lateral. AP image, as before, was taken to ensure midline placement. The cage was then expanded into position. This restored height, lordosis and alignment well. The cage was tested and was stable. The wound was irrigated. Meticulous hemostasis then performed. At L3-4, bilateral laminectomy, complete facetectomy and foraminotomy were performed. Again exuberant bone formation noted and encountered along with dural scarring and ligamental cyst formations. The elements were then protected, and disc space accessed. Sequential shaving performed until desired height and lordosis. Cage selected, and graft placed anterior to the cage within the disc space. Cage was then placed under lateral image, expanded and had good height, lordosis and deformity correction. The wound was irrigated, and meticulous hemostasis performed once again. Attention was then drawn to rebecca placement. Rods were selected, measured, cut and bent to appropriate lordosis. They were then secured into pelvic screws b/l. Sequential reduction then done into each screw and set screw placed. Set screws were then final tightened and lateral image showed good lordosis reduction and sagittal alignment. The wound was then irrigated with 3L Ancef irrigation, 3L gentamicin irrigation, 3L Irricept through the case and 1L Betadine at the end of the case and 3L NSS. Surgicel was then placed on the dura, which was inspected and had no injury. Then, in the posterolateral gutter was placed, MagnatOs, Autograft and allograft. This was impacted into position and surgical placed over it. 2g Vanco powder was then placed deep in the wound. A deep, subfascial drain was placed and a superficial facial drain placed. We then proceeded with layered closure. #1 PDS placed in the deep fascia. 0 Vicryl placed in the deep subq, 2-0 placed in the superficial subq and macho placed in the skin. The wound edges approximated very well. The wound was then cleaned with ETOH and dressed with adaptic, 4x4, ABD and tape. Drains sewed into position. IONM confirmed no changes. The patient was then transferred off the [facility] spine table to their hospital bed a-traumatically. Drains continued to hold suction. The patient was then extubated and transferred to the PACU/ICU in stable condition having tolerated the procedure with no complications.
[2024-06-05] MEDS: SENNOSIDES-DOCUSATE SODIUM 1 EACH TAB PO PRN (08:22)
[2024-06-05 08:45] LABS: Basophils # (A) 0.03 X 10*3/uL (0.00-0.10); Basophils % (A) 0.4 %; Eosinophils # (A) 0.08 X 10*3/uL (0.04-0.35); HCT 22.6 % (37.2-46.3); HGB 7.1 g/dL (12.0-15.0); Lymphocytes # (A) 1.66 X 10*3/uL (0.90-5.00); Lymphocytes % (A) 20.7 %; MCH 29.3 pg (27.0-32.0); MCHC 31.4 g/dL (32.0-37.0); MCV 93.4 FL (80.0-97.0); Mean Platelet Volume 8.8 FL (9.5-12.2); Monocytes # (A) 0.87 X 10*3/uL (0.20-1.00); Monocytes % (A) 10.9 %; NRBC Per 100 WBC 0 X 10*3/uL (0.00-0.01); Neutrophils # (A) 5.32 X 10*3/uL (1.80-7.70); Neutrophils % (A) 66.4 %; Platelet Count 257 X 10*3/uL (140-440); RBC 2.42 X 10*6/uL (4.10-5.20); RDW 13.8 % (11.5-14.5); WBC 8.01 X 10*3/uL (4.50-10.00)
--- NOTE | 2024-06-05 11:28 | CT ---
EXAMINATION TYPE: CT lumbar spine wo con DATE OF EXAM: 06/05/2024 11:05 AM COMPARISON: 02/18/2024 CLINICAL INDICATION: Female, 59 years old with history of s/p revision L3-pelvis decompr fusion; PHH, s/p revision L3-pelvis decompr fusion. TECHNIQUE: Unenhanced CT of the lumbar spine was performed. Bone and soft tissue window settings are submitted as well as coronal and sagittal reconstructions. CT DLP: 1357.[address] CTDI: mGy Automated exposure control for dose reduction was used. FINDINGS: There are recent postsurgical changes of posterior metallic and interbody fusion from L3 through S1. There are multiple skin macho in the midline posterior lumbar soft tissues. There is a wide laminectomy from L3 through L5/S1. The lumbar vertebral segments are normal in height and alignment there is no fracture. There is moder ate degenerative disease at the T12/L1, L1/L2 and L2/L3 levels where there is moderate spondylosis, d isc space narrowing and vacuum phenomena Metallic artifact limits evaluation of the spinal canal but there is no definite spinal stenosis or l arge disc herniation. There is no discrete fluid collection or abscess in the posterior paraspinal soft tissues. There is fusion of the SI joints with 2 screws bridging both SI joints. IMPRESSION: 1. Postsurgical changes as described above. 2. Lumbar vertebral segments are normal in height and alignment. 3. Moderate degenerative disc disease from T12 through L3 4. Limited evaluation of spinal canal due to metallic artifact but no definite spinal stenosis or lar ge disc herniation [facility], Workstation: [id number] 06/05/2024 11:25 AM
[2024-06-05] MEDS ORDERED: DEXTROSE 50% SYRINGE 50 ML IVP PRN ×2 (14:19)
[2024-06-05] MEDS: FERROUS SULFATE 325 MG TAB PO SCH (16:22)
[2024-06-05 16:46] LABS: Glucose,Whole Blood 187 mg/dL (70-110)
[2024-06-05] MEDS: INSULIN ASPART (NovoLOG) 100 UNIT/ML VIAL SQ SCH (17:39)
--- NOTE | 2024-06-05 17:47 | P.PN ---
Subjective Progress Note Date: 06/05/24 Principal diagnosis: 1. L3-S1 SPONDYLOSIS, SEVERE WITH STENOSIS 2. 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 L5-S1 GRADE 1 SPONDYLOLISTHESIS, UNSTABLE 4. NEUROGENIC CLAUDICATION 5. LE PARESTHESIAS 6. LE WEAKNESS 7. LOW BACK PAIN Patient was seen at bedside this morning lying the semirecumbent position with dressing and drain in place over lumbar spine. Patient says she just finished walking around the room a little bit and using the bathroom. She says she is in a decent amount of pain since surgery yesterday. She is hoping to stay 1-2 additional nights for continued therapy and to get her pain under better control. Patient denies any other significant orthopedic complaints at this time. She states she does have a walker for home. She says she will have fami ly/friends available to help her out when she does leave the hospital. Objective - Vital Signs Vital signs: Vital Signs Temp 99.5 F 06/05/24 11:39 Pulse 88 06/05/24 11:39 Resp 16 06/05/24 11:39 BP 90/59 06/05/24 11:39 Pulse Ox 97 06/05/24 11:19 FiO2 Intake & Output 06/04/24 06/05/24 06/05/24 18:59 06:59 18:59 Intake Total 3102 480 Output Total 825 1550 125 Balance 2277 -1550 355 Weight 79.8 kg 79.8 kg Intake: IV 3102 Oral 480 Blood Product 0 Unit 0 Output: Drainage 250 125 Right Back 250 125 Urine 325 1300 Estimated Blood Loss 500 Other: Voiding Method Indwelling Catheter Indwelling Catheter # Voids 1 - Exam Dressing appears to be clean, dry, intact over the lumbar spine at this time. RAFY drain is present with moderate serosanguineous output. Maintain drain to fu ll suction at this time. Sensation is equal, symmetric, bilateral intact throughout the upper and lower extremities on exam. Moderate tenderness to patient diffusely throughout the lumbar spine near incision on exam. Nontender to palpation on rest of exam. Patient does have some limited range of motion in the bilateral hips secondary to referred stiffness and pain to the low back from surgery. Patient does have good range of motion throughout bilateral upper extremities on exam as well as bilateral knees in flexion so extension. Patient does have good range of motion in bilateral ankles and dorsi/plantarflexion. 4/5 in all major motor groups in bilateral lower extremities. 5/5 in all major motor groups in bilateral upper extremities. Radial pulse intact, 2+ bilaterally. Cap refill under 3 seconds digits of lower extremities. Negative Homans bilaterally. - Labs CBC & Chem 7: 06/05/24 05:53 06/05/24 04:29 Labs: Abnormal Lab Results - Last 24 Hours (Table) 05/27/24 06/04/24 06/05/24 Range/Units 12:02 17:47 04:29 RBC (4.10-5.20) X 10*6/uL Hgb (12.0-15.0) g/dL Hct (37.2-46.3) % MCHC (32.0-37.0) g/dL MPV (9.5-12.2) FL Immature Gran # (0.00-0.04) X 10*3/uL Potassium 5.5 H (3.5-5.1) mmol/L Chloride 111 H (98-107) mmol/L Glucose 136 H (74-99) mg/dL POC Glucose (mg/dL) 159 H (70-110) mg/dL Crossmatch See Detail 06/05/24 Range/Units 05:53 RBC 2.42 L (4.10-5.20) X 10*6/uL Hgb 7.1 L (12.0-15.0) g/dL Hct 22.6 L (37.2-46.3) % MCHC 31.4 L (32.0-37.0) g/dL MPV 8.8 L (9.5-12.2) FL Immature Gran # 0.05 H (0.00-0.04) X 10*3/uL Potassium (3.5-5.1) mmol/L Chloride (98-107) mmol/L Glucose (74-99) mg/dL POC Glucose (mg/dL) (70-110) mg/dL Crossmatch Assessment and Plan Assessment: 1. L3-S1 SPONDYLOSIS, SEVERE WITH STENOSIS 2. 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 L5-S1 GRADE 1 SPONDYLOLISTHESIS, UNSTABLE 4. NEUROGENIC CLAUDICATION 5. LE PARESTHESIAS 6. LE WEAKNESS 7. LOW BACK PAIN -Postop day #1 status post revision L3 to pelvis decompression and fusion Plan: 1. 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 Patient stable at bedside this morning with dressing in place over lumbar spine. Patient says she has been up walking a little bit since surgery yesterday. However she does states she is in a decent mount of pain today. Drain is in place over lumbar spine at this time as well with moderate serosanguineous output. Patient is hoping to stay 1 or 2 more additional nights for pain control and additional therapy in the hospital prior to going home. She says she is looking forward to working with therapy later today. Patient denies any other orthopedic complaints at this time. 2. Prescient medical management 3. Pain management -[place]; gabapentin; Flexeril 4. GI prophylaxis - senna 5. DVT prophylaxis -mechanical 6. PT/OT -weightbearing as tolerated with walker as needed 7. Encourage incentive spirometer use 8. Discharge planning -plan for discharge home with home care tomorrow, 06/06/2024 versus 06/07/2024 Time with Patient: Less than 30
[2024-06-05 18:13] LABS: HCT 30.3 % (34.0-46.0); HGB 9.9 gm/dL (11.4-16.0); MCH 30.2 pg (25.0-35.0); MCHC 32.6 g/dL (31.0-37.0); MCV 92.7 fL (80.0-100.0); Mean Platelet Volume 7.2; Platelet Count 290 k/uL (150-450); RBC 3.27 m/uL (3.80-5.40); RDW 14.3 % (11.5-15.5); WBC 7.9 k/uL (3.8-10.6)
[2024-06-05] MEDS: FUROSEMIDE 10 MG/ML 2 ML VIAL IV ONE (18:13)
[2024-06-05 20:19] LABS: Glucose,Whole Blood 188 mg/dL (70-110)
[2024-06-05] MEDS: METOPROLOL TARTRATE 25 MG TAB PO SCH (20:58)
[2024-06-05] MEDS: RANOLAZINE 500 MG TAB.ER.12H PO SCH (20:58)
--- NOTE | 2024-06-05 21:01 | CONS ---
CONSULTATION REASON FOR CONSULTATION: Advice regarding diabetes mellitus and other medical issues, requested by Orthopedics. HISTORY OF PRESENT ILLNESS: This is a 59-year-old woman with a past medical history of diabetes mellitus, hypertension, hyperlipidemia, underwent L5-S1 intradiscal osteotomy and surgery. The patient is being closely monitored. There is no history of any fever, rigors, or chills at this time. PAST MEDICAL HISTORY: Reviewed include diabetes mellitus, hyperlipidemia, hypertension. Rest of the history and rest of the chart is also reviewed. HOME MEDICATIONS: Reviewed . Rest of medication and chart is also reviewed. ALLERGIES: Reviewed include codeine. FAMILY HISTORY: History of uterine cancer. SOCIAL HISTORY: Previous history of smoking. REVIEW OF SYSTEMS: Fourteen-point review of systems is negative except as mentioned earlier. PHYSICAL EXAMINATION: VITAL SIGNS: Pulse is 88, blood pressure 90/59, respirations 16. HEENT: Conjunctivae normal. NECK: No JVD. CARDIOVASCULAR: S1, S2. RESPIRATIONS: Breath sounds diminished at the bases. No rhonchi. No crackles. ABDOMEN: Soft, nontender. LEGS: No edema. NERVOUS SYSTEM: Nonfocal. LABORATORY DATA: Hemoglobin 7.1, potassium 5.5. ASSESSMENT: 1. Status post back surgery for severe degenerative joint disease. 2. Anemia, status post transfusion. 3. Diabetes mellitus, type 2. 4. Mild hyperkalemia. 5. Hypertension. 6. Hyperlipidemia. 7. Multiple complex medical issues. RECOMMENDATION AND DISCUSSION: This is a 59-year-old woman present after surgery. At this time, I recommend to resume the home medications. Monitor blood sugars closely. Repeat potassium in the morning. Transfusion has been arranged. We will follow the patient closely. DVT prophylaxis. Incentive spirometry. Further recommendations to follow. Administered 1 dose of Lasix also. MMODL / IJN: [id number] / MTDD
[2024-06-05] MEDS: diphenhydrAMINE 25 MG CAP PO STA (23:24)
[2024-06-06] MEDS: PANTOPRAZOLE 40 MG TABLET PO SCH (06:49)
[2024-06-06 06:56] LABS: Glucose,Whole Blood 220 mg/dL (70-110)
[2024-06-06] MEDS ORDERED: POTASSIUM CHLORIDE ER 10 MEQ TAB.ER.PRT PO SCH (09:00)
[2024-06-06 09:32] LABS: Basophils # (A) 0.02 X 10*3/uL (0.00-0.10); Basophils % (A) 0.3 %; Eosinophils # (A) 0.17 X 10*3/uL (0.04-0.35); Eosinophils % (A) 2.2 %; HCT 29.1 % (37.2-46.3); HGB 9.3 g/dL (12.0-15.0); Lymphocytes # (A) 1.37 X 10*3/uL (0.90-5.00); MCV 93.9 FL (80.0-97.0); Mean Platelet Volume 8.9 FL (9.5-12.2); Monocytes # (A) 0.74 X 10*3/uL (0.20-1.00); Monocytes % (A) 9.7 %; NRBC Per 100 WBC 0 X 10*3/uL (0.00-0.01); Neutrophils # (A) 5.28 X 10*3/uL (1.80-7.70); Neutrophils % (A) 69.4 %; Platelet Count 234 X 10*3/uL (140-440); RDW 14.1 % (11.5-14.5); WBC 7.61 X 10*3/uL (4.50-10.00)
[2024-06-06] MEDS: ATORVASTATIN 20 MG TAB PO SCH (10:11)
[2024-06-06] MEDS: PIOGLITAZONE 30 MG TAB PO SCH (10:11)
[2024-06-06] MEDS: FUROSEMIDE 20 MG TAB PO SCH (10:11)
[2024-06-06] MEDS: LORATADINE-PSEUDOEPH 5-120 MG 1 EACH TAB.ER.12H PO SCH (10:12)
[2024-06-06] MEDS: LINAGLIPTIN 5 MG TABLET PO SCH (10:12)
[2024-06-06] MEDS: MULTIVITAMINS, THERA 1 EACH TAB PO SCH (10:12)
[2024-06-06] MEDS: LOSARTAN 50 MG TAB PO SCH (10:12)
[2024-06-06 10:37] LABS: BUN/Creat Ratio 15.29 Ratio (12.00-20.00); Blood Urea Nitrogen 10.7 mg/dL (9.0-27.0); Calcium 8.1 mg/dL (8.7-10.3); Carbon Dioxide 22.5 mmol/L (21.6-31.8); Chloride 104 mmol/L (96-109); Glucose 180 mg/dL (70-110); Magnesium 1.9 mg/dL (1.5-2.4); Potassium 3.9 mmol/L (3.5-5.5); Sodium 139 mmol/L (135-145)
[2024-06-06 11:34] LABS: Glucose,Whole Blood 195 mg/dL (70-110)
--- NOTE | 2024-06-06 13:23 | P.PN ---
Subjective Progress Note Date: 06/06/24 Principal diagnosis: 1. L3-S1 SPONDYLOSIS, SEVERE WITH STENOSIS 2. 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 L5-S1 GRADE 1 SPONDYLOLISTHESIS, UNSTABLE 4. NEUROGENIC CLAUDICATION 5. LE PARESTHESIAS 6. LE WEAKNESS 7. LOW BACK PAIN Patient was seen at bedside this morning sitting at the edge of the bed with dressing and drain in place over lumbar spine. Patient states she thinks that the drain was leaking this morning. Patient says she has been up walking since surgery. She says she has urinated since surgery without issue. Patient denies any significant complaints at this time. She is hoping to stay one more additional night for continued therapy and pain control and would like to try to go home tomorrow. Objective - Vital Signs Vital signs: Vital Signs Temp 99.4 F 06/06/24 07:35 Pulse 82 06/06/24 07:35 Resp 18 06/06/24 07:35 BP 137/59 06/06/24 07:35 Pulse Ox 94 L 06/06/24 07:35 FiO2 Intake & Output 06/05/24 06/06/24 06/06/24 18:59 06:59 18:59 Intake Total 1150 Output Total 200 Balance 950 Intake: Oral 840 Blood Product 310 Rc As-1 Unit 310 [id number] Output: Drainage 200 Right Back 200 Other: Voiding Method Indwelling Catheter Toilet # Voids 1 1 - Exam Dressing appears to be clean, dry, intact over the lumbar spine at this time. RAFY drain is present with lower serosanguineous output. Drain removed at bedside this morning. New dressing was placed over drain as well as new dressing over main incision. Riaz are well and intact. Negative for any active drainage. Sensation is equal, symmetric, bilateral intact throughout the upper and lower extremities on exam. Moderate tenderness to patient diffusely throughout the lumbar spine near incision on exam. Nontender to palpation on rest of exam. Patient does have some limited range of motion in the bilateral hips secondary to referred stiffness and pain to the low back from surgery. Patient does have good range of motion throughout bilateral upper extremities on exam as well as bilateral knees in flexion so extension. Patient does have good range of motion in bilateral ankles and dorsi/plantarflexion. 4/5 in all major motor groups in bilateral lower extremities. 5/5 in all major motor groups in bilateral upper extremities. Radial pulse intact, 2+ bilaterally. Cap refill under 3 seconds digits of lower extremities. Negative Homans bilaterally. - Labs CBC & Chem 7: 06/06/24 03:21 06/06/24 03:21 Labs: Abnormal Lab Results - Last 24 Hours (Table) 05/27/24 06/05/24 06/05/24 Range/Units 12:02 16:45 17:48 RBC 3.27 L (3.80-5.40) m/uL Hgb 9.9 L (11.4-16.0) gm/dL Hct 30.3 L (34.0-46.0) % MPV (9.5-12.2) FL Anion Gap (4.00-12.00) mmol/L Glucose (70-110) mg/dL POC Glucose (mg/dL) 187 H (70-110) mg/dL Hemoglobin A1c (<=6.0) % Calcium (8.7-10.3) mg/dL Crossmatch See Detail 06/05/24 06/06/24 06/06/24 Range/Units 20:18 03:21 03:21 RBC 3.10 L (3.80-5.40) m/uL Hgb 9.3 L (11.4-16.0) gm/dL Hct 29.1 L (34.0-46.0) % MPV 8.9 L (9.5-12.2) FL Anion Gap (4.00-12.00) mmol/L Glucose (70-110) mg/dL POC Glucose (mg/dL) 188 H (70-110) mg/dL Hemoglobin A1c 6.6 H (<=6.0) % Calcium (8.7-10.3) mg/dL Crossmatch 06/06/24 06/06/24 06/06/24 Range/Units 03:21 06:54 11:33 RBC (3.80-5.40) m/uL Hgb (11.4-16.0) gm/dL Hct (34.0-46.0) % MPV (9.5-12.2) FL Anion Gap 12.50 H (4.00-12.00) mmol/L Glucose 180 H (70-110) mg/dL POC Glucose (mg/dL) 220 H 195 H (70-110) mg/dL Hemoglobin A1c (<=6.0) % Calcium 8.1 L (8.7-10.3) mg/dL Crossmatch Assessment and Plan Assessment: 1. L3-S1 SPONDYLOSIS, SEVERE WITH STENOSIS 2. 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 L5-S1 GRADE 1 SPONDYLOLISTHESIS, UNSTABLE 4. NEUROGENIC CLAUDICATION 5. LE PARESTHESIAS 6. LE WEAKNESS 7. LOW BACK PAIN -Postop day #2 status post revision L3 to pelvis decompression and fusion Plan: 1. 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 Patient stable at bedside this morning with dressing in place over lumbar spine. Drain was removed at bedside this morning. New dressing was placed over drain incision as well as main incision. [place] well aligned and intact. We'll plan to keep patient on additional night for pain control and therapy. Planning for discharge home tomorrow 2. Appreciate medical management 3. Pain management -Garden; gabapentin; Flexeril 4. GI prophylaxis - senna 5. DVT prophylaxis -mechanical 6. PT/OT -weightbearing as tolerated with walker as needed 7. Encourage incentive spirometer use 8. Discharge planning -plan for discharge home with home care tomorrow, 06/07/2024 Time with Patient: Less than 30
[2024-06-06 16:41] LABS: Glucose,Whole Blood 195 mg/dL (70-110)
[2024-06-06 20:56] LABS: Glucose,Whole Blood 119 mg/dL (70-110)
[2024-06-07] MEDS: PIPERACILLIN-TAZOBACTAM 3.375 GM in SODIUM CHLORIDE 0.9% 100 ML IVPB SCH (05:04)
[2024-06-07 06:23] LABS: Glucose,Whole Blood 218 mg/dL (70-110)
[2024-06-07 08:46] VITALS: BP 113/70; PULSE 85; RESP 16; TEMP 98.6
[2024-06-07 09:46] LABS: Basophils # (A) 0.02 X 10*3/uL (0.00-0.10); Basophils % (A) 0.2 %; Eosinophils # (A) 0.13 X 10*3/uL (0.04-0.35); Eosinophils % (A) 1.4 %; HCT 25.9 % (37.2-46.3); HGB 8.2 g/dL (12.0-15.0); Lymphocytes # (A) 0.94 X 10*3/uL (0.90-5.00); Lymphocytes % (A) 10.4 %; MCH 29.4 pg (27.0-32.0); MCHC 31.7 g/dL (32.0-37.0); MCV 92.8 FL (80.0-97.0); Mean Platelet Volume 9.1 FL (9.5-12.2); Monocytes # (A) 0.88 X 10*3/uL (0.20-1.00); Monocytes % (A) 9.7 %; NRBC Per 100 WBC 0 X 10*3/uL (0.00-0.01); Neutrophils # (A) 7.08 X 10*3/uL (1.80-7.70); Platelet Count 234 X 10*3/uL (140-440); RBC 2.79 X 10*6/uL (4.10-5.20); RDW 13.6 % (11.5-14.5); WBC 9.08 X 10*3/uL (4.50-10.00)
[2024-06-07 10:01] LABS: Magnesium 1.7 mg/dL (1.5-2.4)
[2024-06-07 10:33] LABS: BUN/Creat Ratio 10.14 Ratio (12.00-20.00); Blood Urea Nitrogen 7.1 mg/dL (9.0-27.0); Calcium 8.1 mg/dL (8.7-10.3); Carbon Dioxide 25.4 mmol/L (21.6-31.8); Chloride 97 mmol/L (96-109); Glucose 318 mg/dL (70-110); Potassium 3.6 mmol/L (3.5-5.5); Sodium 133 mmol/L (135-145)
[2024-06-07 11:16] LABS: Glucose,Whole Blood 200 mg/dL (70-110)
--- NOTE | 2024-06-07 11:36 | P.DS ---
Providers Date of admission: 06/04/24 09:59 Expected date of discharge: 06/07/24 Attending physician: Naldo Neumann DO Consults: 06/04/24 16:59 Consult Physician Routine Consulting Provider: Bolivar Walton Consult Reason/Comments: medical management s/p revision L3-pelvis decompr fusion Do you want consulting provider notified?: Yes Primary care physician: Christiana Parekh Hospital Course: Date of admission: 06/04/2024 Date of discharge: 06/07/2024 Admission diagnosis: 1. L3-S1 SPONDYLOSIS, SEVERE WITH STENOSIS 2. 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 L5-S1 GRADE 1 SPONDYLOLISTHESIS, UNSTABLE 4. NEUROGENIC CLAUDICATION 5. LE PARESTHESIAS 6. LE WEAKNESS 7. LOW BACK PAIN -Postop day #2 status post revision L3 to pelvis decompression and fusio Discharge diagnosis: Same Attending physician: Dr. Neumann Surgical procedures: Revision L3 to pelvis decompression and fusion Brief history: Patient is a 59-year-old female with a history of L3-S1 spondylosis, severe with stenosis; L4-5 and L5-S1 spondylolisthesis; neurogenic claudication; lower extremity paresthesias and weakness; low back pain. At this point patient has failed conservative treatment measures and has opted to proceed with a elective L3 to pelvis decompression and fusion, revision. Hospital course: Details of patient's surgery can be found in operative report. Patient tolerated the procedure well and was subsequently transported to orthopedic floor. Patient's orthopeidc and medical care was provided daily. Patient had daily laboratory tests performed for evaluation of overall blood counts. Patient had daily physical therapy to include strengthening range of motion as well as education with walker ambulation. Patient was noted to have a relatively uneventful postoperative course. Patient reported satisfactory pain control with oral pain medications by postoperative day 3. Patient showed satisfactory progress with physical therapy. Patient moved steadily through the program and had no difficulty meeting the goals by postoperative day 3. Given patient's otherwise satisfactory course and having met physical therapy goals, plan is to discharge patient home on postoperative day 3. Discharge condition/disposition: Patient will be discharged home in stable condition. Discharge medications: Instructions are given on resumption of patient's normal daily medications per primary care recommendation, in addition patient will be prescribed [place] Flexeril; gabapentin; Duricef; senna. Spine Discharge and Recovery Instructions Date of Surgery: 04/26/2020 Diagnosis: 1. L3-S1 SPONDYLOSIS, SEVERE WITH STENOSIS 2. 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 L5-S1 GRADE 1 SPONDYLOLISTHESIS, UNSTABLE 4. NEUROGENIC CLAUDICATION 5. LE PARESTHESIAS 6. LE WEAKNESS 7. LOW BACK PAIN Procedure: Revision L3 to pelvis decompression and fusion Medications: See medication list All medication refills should be obtained through your primary care doctor or y our clinic spine surgeon. Please discuss prescription refills at your follow up appointment. Do not call the hospital for medication refills. Dressing: Leave your dressing in place for a total of 5 days post operatively. Then you may remove your dressing and leave open to air. Keep the area clean and if not able to keep area clean, then cover with sterile gauze and tape. Showering: You may shower 3 days after your procedure allowing soap and water to run over incision. Do not scrub. Do not soak. Blot dry. Follow up: Please confirm a follow up appointment with your surgeon 3 weeks post operatively. Please make an appointment to follow up with your PCP in 1-2 weeks after surgery for evaluation '3 phase, 3-week plan' POST OP WEEKS 1-3 1. Lifting/carrying/pushing/pulling limited to less than 5 pounds. 2. Do not sit for longer than 15 minutes at one time. Get up and walk around. Prolonged sitting is NOT advised. If you lay down, see if you can tolerate laying down on you front (belly side) 3. Walk for periods of 15 minutes = 1 mile but no longer; do it multiple times times each day. 4. Ice your low back after activity. POST OP WEEKS 3-6 1. Lifting limited to less than 20 pounds. 2. Do not sit for longer than 30 minutes at a time. Frequently change positions. Use a sit-to stand workstation or take frequent breaks from sitting if you have returned to work. 3. Walk for 30 minutes each day. If possible, do these three or more times a day POST OP WEEKS 6+ At your 6-week appointment we will give you a physical therapy referral to focus on a core stabilization and strengthening program. You should also work on leg & buttock strengthening, hamstring & quadriceps stretching, and continue a low impact aerobic activity program such as swimming, walking, or riding a stationary bicycle. During the initial 6 weeks after your surgery, you are at the highest risk of re-injuring your spine. You should generally avoid BLT's (bending, lifting and twisting combination motions) and follow the above guidelines to reduce the chance of reinjury. You can anticipate post op appointments in our office at approximately 3 weeks and 6 weeks after your surgery. INCISION CARE: If your incision is not draining you do NOT need to cover it with a dressing. Keep your incision clean, dry and intact. In most cases, we apply skin glue, macho or sutures to the incision at the time of surgery. This will be like a crust or have the appearance of a scab and will fall off in time on its own. The stitches or macho need to be removed at 3 weeks post op appointment. You may begin to shower 3 days after surgery (this allows the glue to delacruz well). However, please avoid scrubbing the incision site or peeling off any of the skin glue. This will ensure optimal healing of your incision. Also, during this time avoid soaking the incision area in water - this includes swimming pools, hot tubs or baths. No ointments, lotions or oils on the incision until your surgeon allows. Leave macho, sutures or glue in place. Neurological dysfunction that comes on suddenly can also be a sign of a stroke. Below some common symptoms of a stroke are listed: B - balance difficulty such as sudden onset walking or leaning to one side - NEW E - eye problem such as sudden double vision or trouble seeing on one side - NEW F - Facial weakness or numbness on one side - NEW A - Arm or leg weakness or numbness on one side - NEW S - Slurred speech or difficulty with word finding - NEW T - Time is BRAIN! Call 911 as soon as you recognize these symptoms Diet: Consume a regular diet rich in vegetables and lean protein such as chicken or fish. You should consume in a ratio of approximately 20% fats|40% carbohydrates|40%protein. Vegetables, sweet potatoes, brown rice or quinoa are examples of good carbohydrates. Chips, white bread, cookies and sweets/sugar are examples of bad carbohydrates. Limit your bad carbs, go wild with good carbs. "Life's Simple 7" Guidelines as per [place] [employer] These will help you reclaim your life after surgery and stone driller helper in your recovery, keeping in mind your restrictions. (1) Get Active. Physical activity can help people lose weight, control high blood pressure and cholesterol, feel emotionally better, and sleep better. (2) Control Cholesterol. Avoid a diet high in saturated fat, trans fat, & cholesterol. Limit whole milk & cream, ice cream, butter, egg yolks, processed meats (like sausage and hot dogs), and fatty meats. Choose healthy foods that are low in saturated fat, trans fat and cholesterol which include: Fruits and vegetables, fiber rich grain products (like whole grain pasta and brown rice), lean meat such as chicken, fish, nuts, seeds, and legumes. (3) Eat Better. Eat small portions. Shop at the grocery with a list and do not stray from it. Tips for a healthy diet include: Limit sodium intake to less than 1500mg daily, avoid prepackaged, processed, and fast foods, choose a diet rich in fruits, vegetables, and whole grain, high fiber foods, and limit saturated & cholesterol in your diet. (4) Manage Blood Pressure. If you have high blood pressure, you should have a cuff at home so that you can check your blood pressure regularly. Be sure you have a good cuff. An arm one is generally better than a wrist one. Bring the cuff to a doctor's appointment to validate that the measurements that your cuff are taking are accurate. Take your blood pressure twice daily when you are sitting down and relaxing. Record the numbers in a log and bring this log with you to your doctors' appointments. (5) Lose Weight if your BMI is above 25. A healthy BMI is between 19-25. To calculate Your BMI, you may use a Standard BMI Calculator on the NIH BMI website: <www.nhlbi.nih.gov/guidelines/obesity/BMI/bmicalc.htm>. Weigh oneself daily. If you are overweight, set a goal to lose weight. A pound a week loss if needed is a good target. (6) Reduce Blood Sugar. Limit foods and liquids with "added sugars." (Added sugars include sucrose, fructose, glucose, maltose, dextrose, high fructose corn syrup, corn syrup, concentrated fruit juice and honey). (7) Stop Smoking. If you smoke, quitting smoking is one of the best things that you can do for your health. Smoking increases your risk of heart attack, stroke, and peripheral vascular disease, which is a build-up of plaque in your arteries. Please discard all the cigarettes and lighters in your house. Have a plan for what you will do when you have the urge to smoke. Direct and second- hand smoke shortens your life as well as the lives of your family, friends and others around you. For your health and the health of those around you, please consider quitting! Proper Bending Body Mechanics: Maintain a wide stance with one foot slightly in front of the other. Keep your back straight. Bend utilizing the strength in your hips and knees. Do not bend at the waist. Maintain the lifted object at your waist-level close to your body. Avoid lifting weight that causes immediately pain or pain anywhere in the body afterwards. Smoking/Nicotine If there was ever one thing that you could do to increase your overall health, decrease your risk of cardiovascular problems by about 39% the second you make the choice, it is to STOP SMOKING. Your body's most instant gratification is the second you stop smoking. We have all heard the studies, read the articles but it is true, smoking is extremely bad for your overall health, and moreover it is detrimental to your bone health. Nicotine, IN ANY FORM, kills bone cells, prevents your body from healing fractures, and significantly prolongs healing after surgery. In spine surgery specifically, it increases your risk of not healing your bones to create a fusion and increases your risk of having a revision surgery due to this up to 60%. I know it is hard. I know it feels impossible. But there are ways. Take control of your life. We are here to help you through it. And when you are ready, ask us and we can direct you to help if you desire. Use the START Plan to Quit Smoking (please visit the Helpguide.org website listed below for more information): S = Set a quit date. Choose a date within the next 2 weeks, so you have enough time to prepare without losing your motivation to quit. If you mainly smoke at work, quit on the weekend, so you have a few days to adjust to the change. T = Tell family, friends, and co-workers that you plan to quit. Let your friends and family in on your plan to quit smoking and tell them you need their support and encouragement to stop. Look for a quit joselyn who wants to stop smoking as well. You can help each other get through the rough times. A = Anticipate and plan for the challenges you'll face while quitting. Most people who begin smoking again do so within the first 3 months. You can help yourself make it through by preparing ahead for common challenges, such as nicotine withdrawal and cigarette cravings. R = Remove cigarettes and other tobacco products from your home, car, and work. Throw away all your cigarettes (no emergency pack!), lighters, ashtrays, and matches. Wash your clothes and freshen up anything that smells like smoke. Shampoo your car, clean your drapes and carpet, and steam your furniture. T = Talk to your doctor about getting help to quit. Your doctor can prescribe medication to help with withdrawal and suggest other alternatives. If you can't see a doctor, you can get many products over the counter at your local pharmacy or grocery store, including the nicotine patch, nicotine lozenges, and nicotine gum. Resources for Quitting Smoking: <https://www .[place].gov/documents/[facility]/Quit_Tobacco_Resources_for_patients_313480_7.pdf> Supplementation: Take recommended dosages of Vitamin D and Calcium to help fortify your bones and help them to heal. See your health maintenance packet for dosages and recommended levels. DVT/VTE prophylaxis: You will be given compression stockings from the hospital. Wear these daily for the first two weeks after surgery. You may take them off at night. You may be prescribed a medication to help thin your blood. Take this as directed. If you are not prescribed this medication, early and frequent ambulation has been shown to be the best prophylaxis to deep vein thrombosis and sequelae related to this event. Assessment: 1. L3-S1 SPONDYLOSIS, SEVERE WITH STENOSIS 2. 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 L5-S1 GRADE 1 SPONDYLOLISTHESIS, UNSTABLE 4. NEUROGENIC CLAUDICATION 5. LE PARESTHESIAS 6. LE WEAKNESS 7. LOW BACK PAIN Procedures: revision L3 to pelvis decompression and fusion Patient Condition at Discharge: Good Plan - Discharge Summary Discharge Rx Participant: Yes New Discharge Prescriptions: New Cyclobenzaprine [Flexeril] 5 mg PO TID #21 tablet HYDROcodone/APAP 10-325MG [[place] 10-325] 1 tab PO Q6HR PRN #28 tab PRN Reason: Pain cefaDROXiL [Duricef] 500 mg PO Q12HR 5 Days #10 cap Gabapentin [Neurontin] 300 mg PO TID #30 cap Sennosides/Docusate Sodium [Senna Plus 8.6-50 mg Softgel] 1 each PO DAILY #20 capsule No Action Multivitamins, Thera [Multivitamin (formulary)] 1 tab PO DAILY Ranolazine [Ranexa] 1,000 mg PO BID Ibuprofen 800 mg PO Q8H PRN PRN Reason: Pain Co Q-10 (Unknown Dose) 1 tab PO DAILY Rosuvastatin (Unknown Dose) 1 tab PO QAM Pioglitazone [Actos] 30 mg PO QAM Fexofenadine/Pseudoephedrine [Mari-D 24 Hour Tablet] 1 tab PO QAM sitaGLIPtin [Januvia] 100 mg PO QAM Potassium Chloride ER [K-Dur 10] 10 meq PO QAM Metoprolol Tartrate 25 mg PO BID Losartan Potassium [Cozaar] 100 mg PO QAM Furosemide [Lasix] 20 mg PO QAM Acetaminophen [Tylenol Extra Strength] 1,500 mg PO BID Ferrous Sulfate [Iron (65 MG Elemental)] PO BID Discharge Medication List Acetaminophen [Tylenol Extra Strength] 1,500 mg PO BID 05/28/24 [History] Co Q-10 (Unknown Dose) 1 tab PO DAILY 05/28/24 [History] Fexofenadine/Pseudoephedrine [Mari-D 24 Hour Tablet] 1 tab PO QAM 05/28/24 [History] Furosemide [Lasix] 20 mg PO QAM 05/28/24 [History] Ibuprofen 800 mg PO Q8H PRN 05/28/24 [History] Losartan Potassium [Cozaar] 100 mg PO QAM 05/28/24 [History] Metoprolol Tartrate 25 mg PO BID 05/28/24 [History] Multivitamins, Thera [Multivitamin (formulary)] 1 tab PO DAILY 05/28/24 [History] Pioglitazone [Actos] 30 mg PO QAM 05/28/24 [History] Potassium Chloride ER [K-Dur 10] 10 meq PO QAM 05/28/24 [History] Ranolazine [Ranexa] 1,000 mg PO BID 05/28/24 [History] Rosuvastatin (Unknown Dose) 1 tab PO QAM 05/28/24 [History] sitaGLIPtin [Januvia] 100 mg PO QAM 05/28/24 [History] Ferrous Sulfate [Iron (65 MG Elemental)] PO BID 06/04/24 [History] Cyclobenzaprine [Flexeril] 5 mg PO TID #21 tablet 06/07/24 [Rx] Gabapentin [Neurontin] 300 mg PO TID #30 cap 06/07/24 [Rx] HYDROcodone/APAP 10-325MG [[place] 10-325] 1 tab PO Q6HR PRN #28 tab 06/07/24 [Rx] Sennosides/Docusate Sodium [Senna Plus 8.6-50 mg Softgel] 1 each PO DAILY #20 capsule 06/07/24 [Rx] cefaDROXiL [Duricef] 500 mg PO Q12HR 5 Days #10 cap 06/07/24 [Rx] Follow up Appointment(s)/Referral(s): Naldo Neumann DO [Doctor of Osteopathic Medicine] - 2 Weeks Activity/Diet/Wound Care/Special Instructions: Spine Discharge and Recovery Instructions Date of Surgery: 04/26/2020 Diagnosis: 1. L3-S1 SPONDYLOSIS, SEVERE WITH STENOSIS 2. 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 L5-S1 GRADE 1 SPONDYLOLISTHESIS, UNSTABLE 4. NEUROGENIC CLAUDICATION 5. LE PARESTHESIAS 6. LE WEAKNESS 7. LOW BACK PAIN Procedure: Revision L3 to pelvis decompression and fusion Medications: See medication list All medication refills should be obtained through your primary care doctor or your clinic spine surgeon. Please discuss prescription refills at your follow up appointment. Do not call the hospital for medication refills. Dressing: Leave your dressing in place for a total of 5 days post operatively. Then you may remove your dressing and leave open to air. Keep the area clean and if not able to keep area clean, then cover with sterile gauze and tape. Showering: You may shower 3 days after your procedure allowing soap and water to run over incision. Do not scrub. Do not soak. Blot dry. Follow up: Please confirm a follow up appointment with your surgeon 3 weeks post operatively. Please make an appointment to follow up with your PCP in 1-2 weeks after surger y for evaluation '3 phase, 3-week plan' POST OP WEEKS 1-3 1. Lifting/carrying/pushing/pulling limited to less than 5 pounds. 2. Do not sit for longer than 15 minutes at one time. Get up and walk around. Prolonged sitting is NOT advised. If you lay down, see if you can tolerate laying down on you front (belly side) 3. Walk for periods of 15 minutes = 1 mile but no longer; do it multiple times times each day. 4. Ice your low back after activity. POST OP WEEKS 3-6 1. Lifting limited to less than 20 pounds. 2. Do not sit for longer than 30 minutes at a time. Frequently change positions. Use a sit-to stand workstation or take frequent breaks from sitting if you have returned to work. 3. Walk for 30 minutes each day. If possible, do these three or more times a day POST OP WEEKS 6+ At your 6-week appointment we will give you a physical therapy referral to focus on a core stabilization and strengthening program. You should also work on leg & buttock strengthening, hamstring & quadriceps stretching, and continue a low impact aerobic activity program such as swimming, walking, or riding a [email or web address] bicycle. During the initial 6 weeks after your surgery, you are at the highest risk of re-injuring your spine. You should generally avoid BLT's (bending, lifting and twisting combination motions) and follow the above guidelines to reduce the chance of reinjury. You can anticipate post op appointments in our office at approximately 3 weeks and 6 weeks after your surgery. INCISION CARE: If your incision is not draining you do NOT need to cover it with a dressing. Keep your incision clean, dry and intact. In most cases, we apply skin glue, macho or sutures to the incision at the time of surgery. This will be like a crust or have the appearance of a scab and will fall off in time on its own. The stitches or macho need to be removed at 3 weeks post op appointment. You may begin to shower 3 days after surgery (this allows the glue to delacruz well). However, please avoid scrubbing the incision site or peeling off any of the skin glue. This will ensure optimal healing of your incision. Also, during this time avoid soaking the incision area in water - this includes swimming pools, hot tubs or baths. No ointments, lotions or oils on the incision until your surgeon allows. Leave macho, sutures or glue in place. Neurological dysfunction that comes on suddenly can also be a sign of a stroke. Below some common symptoms of a stroke are listed: B - balance difficulty such as sudden onset walking or leaning to one side - NEW E - eye problem such as sudden double vision or trouble seeing on one side - NEW F - Facial weakness or numbness on one side - NEW A - Arm or leg weakness or numbness on one side - NEW S - Slurred speech or difficulty with word finding - NEW T - Time is BRAIN! Call 911 as soon as you recognize these symptoms Diet: Consume a regular diet rich in vegetables and lean protein such as chicken or fish. You should consume in a ratio of approximately 20% fats|40% c arbohydrates|40%protein. Vegetables, sweet potatoes, brown rice or quinoa are examples of good carbohydrates. Chips, white bread, cookies and sweets/sugar are examples of bad carbohydrates. Limit your bad carbs, go wild with good carbs. "Life's Simple 7" Guidelines as per [place] [employer] These will help you reclaim your life after surgery and stone driller helper in your recovery, keeping in mind your restrictions. (1) Get Active. Physical activity can help people lose weight, control high blood pressure and cholesterol, feel emotionally better, and sleep better. (2) Control Cholesterol. Avoid a diet high in saturated fat, trans fat, & cholesterol. Limit whole milk & cream, ice cream, butter, egg yolks, processed meats (like sausage and hot dogs), and fatty meats. Choose healthy foods that are low in saturated fat, trans fat and cholesterol which include: Fruits and vegetables, fiber rich grain products (like whole grain pasta and brown rice), lean meat such as chicken, fish, nuts, seeds, and legumes. (3) Eat Better. Eat small portions. Shop at the grocery with a list and do not stray from it. Tips for a healthy diet include: Limit sodium intake to less than 1500mg daily, avoid prepackaged, processed, and fast foods, choose a diet rich in fruits, vegetables, and whole grain, high fiber foods, and limit saturated & cholesterol in your diet. (4) Manage Blood Pressure. If you have high blood pressure, you should have a cuff at home so that you can check your blood pressure regularly. Be sure you have a good cuff. An arm one is generally better than a wrist one. Bring the cuff to a doctor's appointment to validate that the measurements that your cuff are taking are accurate. Take your blood pressure twice daily when you are sit ting down and relaxing. Record the numbers in a log and bring this log with you to your doctors' appointments. (5) Lose Weight if your BMI is above 25. A healthy BMI is between 19-25. To calculate Your BMI, you may use a Standard BMI Calculator on the NIH BMI website: <www.nhlbi.nih.gov/guidelines/obesity/BMI/bmicalc.htm>. Weigh oneself daily. If you are overweight, set a goal to lose weight. A pound a week loss if needed is a good target. (6) Reduce Blood Sugar. Limit foods and liquids with "added sugars." (Added sugars include sucrose, fructose, glucose, maltose, dextrose, high fructose corn syrup, corn syrup, concentrated fruit juice and honey). (7) Stop Smoking. If you smoke, quitting smoking is one of the best things that you can do for your health. Smoking increases your risk of heart attack, stroke, and peripheral vascular disease, which is a build-up of plaque in your arteries. Please discard all the cigarettes and lighters in your house. Have a plan for what you will do when you have the urge to smoke. Direct and second- hand smoke shortens your life as well as the lives of your family, friends and others around you. For your health and the health of those around you, please consider quitting! Proper Bending Body Mechanics: Maintain a wide stance with one foot slightly in front of the other. Keep your back straight. Bend utilizing the strength in your hips and knees. Do not bend at the waist. Maintain the lifted object at your waist-level close to your body. Avoid lifting weight that causes immediately pain or pain anywhere in the body afterwards. Smoking/Nicotine If there was ever one thing that you could do to increase your overall health, decrease your risk of cardiovascular problems by about 39% the second you make the choice, it is to STOP SMOKING. Your body's most instant gratification is the second you stop smoking. We have all heard the studies, read the articles but it is true, smoking is extremely bad for your overall health, and moreover it is detrimental to your bone health. Nicotine, IN ANY FORM, kills bone cells, prevents your body from healing fractures, and significantly prolongs healing after surgery. In spine surgery specifically, it increases your risk of not healing your bones to create a fusion and increases your risk of having a revision surgery due to this up to 60%. I know it is hard. I know it feels impossible. But there are ways. Take control of your life. We are here to help you through it. And when you are michaela dy, ask us and we can direct you to help if you desire. Use the START Plan to Quit Smoking (please visit the Helpguide.org website listed below for more information): S = Set a quit date. Choose a date within the next 2 weeks, so you have enough time to prepare without losing your motivation to quit. If you mainly smoke at work, quit on the weekend, so you have a few days to adjust to the change. T = Tell family, friends, and co-workers that you plan to quit. Let your friends and family in on your plan to quit smoking and tell them you need their support and encouragement to stop. Look for a quit joselyn who wants to stop smoking as well. You can help each other get through the rough times. A = Anticipate and plan for the challenges you'll face while quitting. Most people who begin smoking again do so within the first 3 months. You can help yourself make it through by preparing ahead for common challenges, such as nicotine withdrawal and cigarette cravings. R = Remove cigarettes and other tobacco products from your home, car, and work. Throw away all your cigarettes (no emergency pack!), lighters, ashtrays, and matches. Wash your clothes and freshen up anything that smells like smoke. Shampoo your car, clean your drapes and carpet, and steam your furniture. T = Talk to your doctor about getting help to quit. Your doctor can prescribe medication to help with withdrawal and suggest other alternatives. If you can't see a doctor, you can get many products over the counter at your local pharmacy or grocery store, including the nicotine patch, nicotine lozenges, and nicotine gum. Resources for Quitting Smoking: <https://www.[place].gov/documents/[facility]/Quit_Tobacco_Resources_for_patients_313 480_7.pdf> Supplementation: Take recommended dosages of Vitamin D and Calcium to help fortify your bones and help them to heal. See your health maintenance packet for dosages and recommended levels. DVT/VTE prophylaxis: You will be given compression stockings from the hospital. Wear these daily for the first two weeks after surgery. You may take them off at night. You may be prescribed a medication to help thin your blood. Take this as directed. If you are not prescribed this medication, early and frequent ambulation has been shown to be the best prophylaxis to deep vein thrombosis and sequelae related to this event. Discharge Disposition: HOME SELF-CARE
--- NOTE | 2024-06-07 11:56 | P.PN ---
Subjective Progress Note Date: 06/07/24 Principal diagnosis: 1. L3-S1 SPONDYLOSIS, SEVERE WITH STENOSIS 2. 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 L5-S1 GRADE 1 SPONDYLOLISTHESIS, UNSTABLE 4. NEUROGENIC CLAUDICATION 5. LE PARESTHESIAS 6. LE WEAKNESS 7. LOW BACK PAIN Patient was seen at bedside this morning sitting at the edge of the bed with dressing present over lumbar spine. Patient says she is hoping to go home later today. She says she has been up walking on her own and has had no issues urinating since surgery. She has not had abdominal yet, however, patient states she has been passing gas. Patient denies any other complaints at this time. Objective - Vital Signs Vital signs: Vital Signs Temp 98.6 F 06/07/24 07:05 Pulse 85 06/07/24 07:05 Resp 16 06/07/24 07:05 BP 113/70 06/07/24 07:05 Pulse Ox 96 06/07/24 07:05 FiO2 Intake & Output 06/06/24 06/07/24 06/07/24 18:59 06:59 18:59 Intake Total 560 Balance 560 Intake: Oral 560 Other: Voiding Method Toilet # Voids 4 3 - Exam Dressing appears to be clean, dry, intact over the lumbar spine at this time. New dressing was placed over main incision. Riaz are well and intact. Negative for any active drainage. Sensation is equal, symmetric, bilateral intact throughout the upper and lower extremities on exam. Moderate tenderness to patient diffusely throughout the lumbar spine near incision on exam. Nontender to palpation on rest of exam. Patient does have some limited range of motion in the bilateral hips secondary to referred stiffness and pain to the low back from surgery. Patient does have good range of motion throughout bilateral upper extremities on exam as well as bilateral knees in flexion so extension. Patient does have good range of motion in bilateral ankles and dorsi/plantarflexion. 4/5 in all major motor groups in bilateral lower extrem ities. 5/5 in all major motor groups in bilateral upper extremities. Radial pulse intact, 2+ bilaterally. Cap refill under 3 seconds digits of lower extremities. Negative Homans bilaterally. - Labs CBC & Chem 7: 06/07/24 02:45 06/07/24 02:45 Labs: Abnormal Lab Results - Last 24 Hours (Table) 06/06/24 06/06/24 06/06/24 Range/Units 03:21 11:33 16:39 RBC (4.10-5.20) X 10*6/uL Hgb (12.0-15.0) g/dL Hct (37.2-46.3) % MCHC (32.0-37.0) g/dL MPV (9.5-12.2) FL Sodium (135-145) mmol/L BUN (9.0-27.0) mg/dL BUN/Creatinine Ratio (12.00-20.00) Ratio Glucose (70-110) mg/dL POC Glucose (mg/dL) 195 H 195 H (70-110) mg/dL Hemoglobin A1c 6.6 H (<=6.0) % Calcium (8.7-10.3) mg/dL 06/06/24 06/07/24 06/07/24 Range/Units 20:54 02:45 02:45 RBC 2.79 L (4.10-5.20) X 10*6/uL Hgb 8.2 L (12.0-15.0) g/dL Hct 25.9 L (37.2-46.3) % MCHC 31.7 L (32.0-37.0) g/dL MPV 9.1 L (9.5-12.2) FL Sodium 133 L (135-145) mmol/L BUN 7.1 L (9.0-27.0) mg/dL BUN/Creatinine Ratio 10.14 L (12.00-20.00) Ratio Glucose 318 H (70-110) mg/dL POC Glucose (mg/dL) 119 H (70-110) mg/dL Hemoglobin A1c (<=6.0) % Calcium 8.1 L (8.7-10.3) mg/dL 06/07/24 Range/Units 06:18 RBC (4.10-5.20) X 10*6/uL Hgb (12.0-15.0) g/dL Hct (37.2-46.3) % MCHC (32.0-37.0) g/dL MPV (9.5-12.2) FL Sodium (135-145) mmol/L BUN (9.0-27.0) mg/dL BUN/Creatinine Ratio (12.00-20.00) Ratio Glucose (70-110) mg/dL POC Glucose (mg/dL) 218 H (70-110) mg/dL Hemoglobin A1c (<=6.0) % Calcium (8.7-10.3) mg/dL Assessment and Plan Assessment: 1. L3-S1 SPONDYLOSIS, SEVERE WITH STENOSIS 2. 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 L5-S1 GRADE 1 SPONDYLOLISTHESIS, UNSTABLE 4. NEUROGENIC CLAUDICATION 5. LE PARESTHESIAS 6. LE WEAKNESS 7. LOW BACK PAIN -Postop day #3 status post revision L3 to pelvis decompression and fusion Plan: 1. 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 Patient stable at bedside this morning with dressing in place over lumbar spine. Dressing was removed over lumbar spine. New dressing was placed. Riaz well aligned and intact. Pain medication as needed. Weightbearing as tolerated with walker. Discharge home today with home care 2. Appreciate medical management 3. Pain management -[place]; gabapentin; Flexeril 4. GI prophylaxis - senna 5. DVT prophylaxis -mechanical 6. PT/OT -weightbearing as tolerated with walker as needed 7. Encourage incentive spirometer use 8. Discharge planning -discharge home today with home care Time with Patient: Less than 30
--- NOTE | 2024-06-08 09:09 | PN ---
PROGRESS NOTE DATE OF SERVICE: 06/06/2024 HISTORY OF PRESENT ILLNESS: This is a 59-year-old woman who was admitted after back surgery for DJD, who is being closely monitored. No chest pain. No palpitations. No fever. PHYSICAL EXAMINATION: VITAL SIGNS: Pulse 87, blood pressuren, respirations 18. CHEST: Clear to auscultation. CARDIOVASCULAR: S1, S2. ABDOMEN: Soft. LABORATORY DATA: Hemoglobin 9.3. Glucose 195. ASSESSMENT: 1. Status post back surgery for severe degenerative joint disease. 2. Anemia, status post transfusion. 3. Diabetes mellitus, type 2. 4. Mild hyperkalemia, improved. 5. Hypertension. 6. Hyperlipidemia. 7. Multiple medical issues. RECOMMENDATIONS: Recommend to continue current management and continue symptomatic treatment. Otherwise, continue with insulin scale. Closely follow up with Orthopedic Surgery. Recommend to close followup with primary physician in the outpatient setting. DVT prophylaxis. Further recommendations to follow. MMNOBLEL / IJN: [id number] / NELL
--- NOTE | 2024-06-08 09:14 | PN ---
PROGRESS NOTE DATE OF SERVICE: 06/07/2024 SUBJECTIVE: This is a 59-year-old woman, who was admitted after back surgery, is improving significantly. No chest pain. No palpitation. PHYSICAL EXAMINATION: VITAL SIGNS: On exam, pulse is 85, blood pressure 130/70, respirations 16. CHEST: Clear. CARDIOVASCULAR: S1, S2. ABDOMEN: Soft. LABORATORY DATA: Hemoglobin 8.2. ASSESSMENT: 1. Status post back surgery for severe DJD. 2. Anemia, status post transfusion. 3. Diabetes mellitus, type 2. 4. Multiple medical issues. RECOMMENDATIONS: Recommend to continue current management and symptomatic treatment. Continue medications. Closely follow with the primary physician. Rest of the recommendations per Orthopedic Surgery. MMODL / IJN: [id number] /
== END 2024-06-07 13:25 | disposition home or self-care (01) | DRG 427 ==
LOC: OR 09:58 → 4SSUR 09:59
PROVIDERS: ADMIT Orthopaedic Surgery; ATTEND Orthopaedic Surgery
PROC: 0SG10A0 Fusion of 2 or more Lumbar Vertebral Joints with Interbody Fusion Device, Anterior Approach, Anterior Column, Open Approach (ICD-10-PCS; 2024-06-04)
PROC: 0SG1071 Fusion of 2 or more Lumbar Vertebral Joints with Autologous Tissue Substitute, Posterior Approach, Posterior Column, Open Approach (ICD-10-PCS; 2024-06-04)
PROC: 0SG3071 Fusion of Lumbosacral Joint with Autologous Tissue Substitute, Posterior Approach, Posterior Column, Open Approach (ICD-10-PCS; 2024-06-04)
PROC: 0ST40ZZ Resection of Lumbosacral Disc, Open Approach (ICD-10-PCS; 2024-06-04)
PROC: 0ST20ZZ Resection of Lumbar Vertebral Disc, Open Approach (ICD-10-PCS; 2024-06-04)
PROC: 01NB0ZZ Release Lumbar Nerve, Open Approach (ICD-10-PCS; 2024-06-04)
PROC: 01NR0ZZ Release Sacral Nerve, Open Approach (ICD-10-PCS; 2024-06-04)
PROC: 0SP004Z Removal of Internal Fixation Device from Lumbar Vertebral Joint, Open Approach (ICD-10-PCS; 2024-06-04)
PROC: 0SH804Z Insertion of Internal Fixation Device into Left Sacroiliac Joint, Open Approach (ICD-10-PCS; 2024-06-04)
PROC: 0SH704Z Insertion of Internal Fixation Device into Right Sacroiliac Joint, Open Approach (ICD-10-PCS; 2024-06-04)
PROC: 4A11X4G Monitoring of Peripheral Nervous Electrical Activity, Intraoperative, External Approach (ICD-10-PCS; 2024-06-04)
PROC: 8E0WXBG Computer Assisted Procedure of Trunk Region, With Computerized Tomography (ICD-10-PCS; 2024-06-04)
PROC: 0SG30AJ Fusion of Lumbosacral Joint with Interbody Fusion Device, Posterior Approach, Anterior Column, Open Approach (ICD-10-PCS; principal; 2024-06-04 11:30)
PROC: 30233N1 Transfusion of Nonautologous Red Blood Cells into Peripheral Vein, Percutaneous Approach (ICD-10-PCS; 2024-06-05)
DX: M96.1 Postlaminectomy syndrome, not elsewhere classified (principal); D62 Acute posthemorrhagic anemia; M43.17 Spondylolisthesis, lumbosacral region; E11.9 Type 2 diabetes mellitus without complications; E78.5 Hyperlipidemia, unspecified; M51.17 Intervertebral disc disorders with radiculopathy, lumbosacral region; E87.5 Hyperkalemia; M25.78 Osteophyte, vertebrae; I10 Essential (primary) hypertension; M48.07 Spinal stenosis, lumbosacral region; M47.27 Other spondylosis with radiculopathy, lumbosacral region; Z79.84 Long term (current) use of oral hypoglycemic drugs; Z79.899 Other long term (current) drug therapy; Z85.3 Personal history of malignant neoplasm of breast; Z87.891 Personal history of nicotine dependence; Z90.13 Acquired absence of bilateral breasts and nipples; Z90.710 Acquired absence of both cervix and uterus; Z98.82 Breast implant status
CPT/HCPCS: 72100; 72131; 80048; 83036; 83735; 85025; 85027; 86850; 86900; 86901; 86920; 87040